=== PATIENT | female | born 1965 | race Caucasian/White ===

== ENCOUNTER 2020-10-06 09:03 | Outpatient (REF) | payer OTHER, SELFPAY ==
[2020-10-06 17:45] LABS: Anion Gap 10 (12-20); Blood Urea Nitrogen 8 mg/dL (9-16); Calcium 9.5 mg/dL (8.4-10.2); Carbon Dioxide 30 mmol/L (22-29); Chloride 105 mmol/L (96-108); Cholesterol 225 mg/dL; Estimated Glomerular Filt Rate > 60; Glucose Fasting 95 mg/dL (60-99); HDL Cholesterol 85 mg/dL; LDL Cholesterol Calculated 129 mg/dl; Potassium 4.9 mmol/L (3.3-5.1); Sodium 140 mmol/L (135-145); Triglycerides 59 mg/dL
[2020-10-06 17:53] LABS: Free T4 (Free Thyroxine) 0.89 ng/dL (0.71-1.85); Thyroid Stimulating Hormone 0.82 uIU/mL (0.32-4.0); Vitamin D 25-OH Total 20.1 ng/mL (>30)
== END 2020-10-06 09:04 | disposition home or self-care (01) ==
LOC: HO.HMGCLDS 09:03
PROVIDERS: PCP Internal Medicine; Visit Provider Internal Medicine
DX: Z00.01 Encounter for general adult medical examination with abnormal findings (principal); D12.6 Benign neoplasm of colon, unspecified; E03.9 Hypothyroidism, unspecified; E04.2 Nontoxic multinodular goiter; Z78.0 Asymptomatic menopausal state; I10 Essential (primary) hypertension
CPT/HCPCS: 36415; 80048; 80061; 82306; 84439; 84443

== ENCOUNTER 2020-10-22 09:24 | Outpatient (REF) | payer OTHER, SELFPAY ==
--- NOTE | ~2020-10-22 | US_ITS ---
EXAMINATION: US THYROID CLINICAL INFORMATION: Nontoxic multinodular goiter. COMPARISON: None TECHNIQUE: Linear transducer grayscale and color Doppler examination with attention to the region of the thyroid. FINDINGS: SIZE: Measurements of the thyroid lobes and nodules are given in sagittal, anteroposterior and transverse dimensions respectively. Right Thyroid Lobe: 10.3 x 3.8 x 5.5 cm, volume 113 mL. Parenchyma: The gland echotexture is heterogeneous. Thyroid vascularity is increased. Left Thyroid Lobe: 9.1 x 3.4 x 4.3 cm, volume 70.4 mL. Parenchyma: The gland echotexture is heterogeneous. Thyroid vascularity is increased. Isthmus: 1.12 cm in maximum AP dimension. Estimated total number of nodules greater than or equal to 1 cm: 6 to 10. School Examiner nodules are described as follows: 1. Location: Right inferior. Size: 4.1 x 3.1 x 3.4 cm, volume of 22.6 mL. Nodule characteristics: Composition: Solid/almost completely solid (2). Echogenicity: Hyperechoic (1). The nodule is complex. Shape: Not taller than wide (0). Margins: Smooth (0). Echogenic Foci: None (0). ACR TI-RADS total points: 3 ACR TI-RADS category: 3 2. Location: Right inferior. Size: 3.8 x 3.4 x 2.4 cm, volume 15.8 mL. Nodule characteristics: Composition: Solid/almost completely solid (2). Echogenicity: Hypoechoic (2). Shape: Not taller than wide (0). Margins: Smooth (0). Echogenic Foci: Macrocalcifications (1). ACR TI-RADS total points: 5 ACR TI-RADS category: 4 3. Location: Right mid. Size: 3.3 x 1.1 x 2.3 cm, volume 4.3 mL. Nodule characteristics: Composition: Solid/almost completely solid (2). Echogenicity: Hyperechoic (1). Shape: Not taller than wide (0). Margins: Smooth (0). Echogenic Foci: None (0). ACR TI-RADS total points: 3 ACR TI-RADS category: 3 4. Location: Left superior. Size: 2.9 x 1.6 x 2.8 cm, volume 6.6 mL. Nodule characteristics: Composition: Solid/almost completely solid (2). Echogenicity: Hyperechoic (1). Shape: Not taller than wide (0). Margins: Smooth (0). Echogenic Foci: Punctate echogenic foci (3). ACR TI-RADS total points: 6. ACR TI-RADS category: 4 5. Location: Left mid/inferior. Size: 4.2 x 2.5 x 4.0 cm, volume 22.3 mL. Nodule characteristics: Composition: Solid/almost completely solid (2). Echogenicity: Hyperechoic (1). Shape: Not taller than wide (0). Margins: Smooth (0). Echogenic Foci: None (0). ACR TI-RADS total points: 3 ACR TI-RADS category: 3 NODES: No lymphadenopathy is seen in the tissue surrounding the thyroid gland. US/US thyroid IMPRESSION: Multinodular thyroid. All nodules meet the criteria for fine-needle aspiration biopsy based on TI-RADS category and size ACR TI-RADS RECOMMENDATION REFERENCE: Ultrasound-guided fine-needle aspiration. * TR3 (3 points): FNA if more than or equal to 2.5 cm in maximum dimension * TR4 (4-6 points): FNA if more than or equal to 1.5 cm in maximum dimension.
== END 2020-10-22 09:25 | disposition home or self-care (01) ==
LOC: HO.HMGCX 09:24
PROVIDERS: Visit Provider Internal Medicine
DX: E04.2 Nontoxic multinodular goiter (principal)
CPT/HCPCS: 76536

== ENCOUNTER 2020-11-03 07:57 | Outpatient (REF) | payer OTHER, SELFPAY ==
[2020-11-06 05:56] LABS: HPV mRNA E6/E7 rflx Not Detected (Not Detected)
== END 2020-11-03 07:58 | disposition home or self-care (01) ==
LOC: HO.LAB 07:57
PROVIDERS: PCP Internal Medicine; Visit Provider Obstetrics & Gynecology
DX: Z01.419 Encounter for gynecological examination (general) (routine) without abnormal findings (principal)
CPT/HCPCS: 87624; 88142

== ENCOUNTER → 2020-11-17 13:35 | Outpatient (BNVA) | payer OTHER, SELFPAY | PROVIDERS: Visit Provider Internal Medicine ==

== ENCOUNTER → 2020-11-23 08:31 | Outpatient (BNVA) | payer OTHER, SELFPAY | PROVIDERS: Visit Provider Nurse Practitioner ==

== ENCOUNTER 2020-12-07 14:30 | Outpatient (REF) | payer OTHER, SELFPAY ==
--- NOTE | ~2020-12-07 | MM_ITS ---
EXAMINATION: MM SCREENING DIGITAL BREAST TOMOSYNTHESIS, BILATERAL CLINICAL INFORMATION: Screening. Asymptomatic. Prior outside mammography from [place] currently unavailable. No known family history breast cancer. The lifetime risk of breast cancer based on the Tyrer-Cuzick Model is 10%. COMPARISON: None. TECHNIQUE: Digital breast tomosynthesis is performed in both the craniocaudal and mediolateral oblique views along with computer-aided detection (CAD). Synthesized 2D images are generated from the tomosynthesis. FINDINGS: There are scattered areas of fibroglandular density (ACR BI-RADS breast composition Category b). There are no significant masses, abnormal calcifications, or other abnormalities. The axilla and skin contours are unremarkable. Radiology department staff will attempt to retrieve prior outside mammography to allow for comparison in an addendum report. MM/MM tomosynthesis screening BI IMPRESSION: No mammographic evidence of malignancy. ASSESSMENT: BI-RADS 1: Negative RECOMMENDATION: Routine annual mammography screening. This patient's information was entered into a reminder system with a target due date for their next mammogram.
== END 2020-12-07 14:31 | disposition home or self-care (01) ==
LOC: HO.MAMMO 14:30
PROVIDERS: Visit Provider Internal Medicine
DX: Z12.31 Encounter for screening mammogram for malignant neoplasm of breast (principal)
CPT/HCPCS: 77063; 77067

== ENCOUNTER 2020-12-31 09:23 | Day surgery (SDC) | payer OTHER, SELFPAY ==
--- NOTE | 2020-12-30 08:38 | HO.ANESPROP2 ---
Documented by User: Danuta Montez 12/30/20 08:38 HPI - Anesthesia Eval Consult details Narrative: 55yo F for Colonoscopy PMFSH Active Problems Active Problems: All Active Problems (Updated 11/17/20 @ 14:31 by Soledad Miller DO) Multinodular non-toxic goiter (Acute) Multinodular thyroid (Acute) Vitamin D deficiency (Acute) Postmenopause (Acute) Tubular adenoma of colon (Acute) Past Medical History Medical History Multinodular thyroid Postmenopause Tubular adenoma of colon Vitamin D deficiency Family History Family History Sister Hypothyroidism Sister Hypothyroidism Sister Hypothyroidism Father History of open heart surgery Mother Colon cancer Hemorrhagic stroke Surgical History Surgical History H/O hemorrhoidectomy History of strabismus surgery Hx of colonoscopy Social History Social History Household Members: Family Alcohol intake: never Patient Tobacco Use Status: Never used Tobacco Use of substances other than those prescribed or required for medical reasons: No Are you DNR?: No Advance Directives: No Advance Directives Information Provided: Yes Gender identity: female Meds Allergies Allergy/AdvReac Type Severity Reaction Status Date / Time No Known Allergies Allergy Verified 12/31/20 10:27 [No Known Allergies*] Home Medications Medication Instructions Recorded Confirmed Last Taken Type calcium carbonate 500 mg calcium 500 mg PO DAILY 10/06/20 12/27/20 Unknown History (1,250 mg) tablet multivitamin 1 tab PO DAILY 10/06/20 12/27/20 Unknown History Exam Exam Date and Time: December 30, 2020 0838 Pertinent Lab Results Pertinent Lab Results: Laboratory Tests 03/16/20 10/06/20 20:54 09:12 WBC 13.5 H Hgb 13.8 Hct 41.7 Plt Count 344 Sodium 140 Potassium 4.9 Chloride 105 Carbon Dioxide 30 H BUN 8 L Creatinine 0.81 Assessment and Plan Assessment Anesthesia Assessment: Chart Reviewed Documented by User: Maryana Allen 12/31/20 12:30 [facility] Past Medical History Medical History Multinodular thyroid Postmenopause Tubular adenoma of colon Vitamin D deficiency Family History Family History Sister Hypothyroidism Sister Hypothyroidism Sister Hypothyroidism Father History of open heart surgery Mother Colon cancer Hemorrhagic stroke Family history of problems with anesthesia: No Surgical History Surgical History H/O hemorrhoidectomy History of strabismus surgery Hx of colonoscopy History of Problems with Anesthesia: No Social History Social History Household Members: Family Alcohol intake: never Patient Tobacco Use Status: Never used Tobacco Use of substances other than those prescribed or required for medical reasons: No Are you DNR?: No Advance Directives: No Advance Directives Information Provided: Yes Gender identity: female Meds Allergies Allergy/AdvReac Type Severity Reaction Status Date / Time No Known Allergies Allergy Verified 12/31/20 10:27 [No Known Allergies*] Home Medications Medication Instructions Recorded Confirmed Last Taken Type calcium carbonate 500 mg calcium 500 mg PO DAILY 10/06/20 12/27/20 Unknown History (1,250 mg) tablet multivitamin 1 tab PO DAILY 10/06/20 12/27/20 Unknown History Exam Height,Weight and Vital Signs: Vital Signs Temp Pulse Resp BP Pulse Ox 97.5 F 91 16 144/85 H 97 12/31/20 10:03 12/31/20 10:03 12/31/20 10:03 12/31/20 10:03 12/31/20 10:03 Airway Mallampati Class: II TM Dist: >3cm Neck ROM: Full Heart: RRR Lungs: CTAB Assessment and Plan Assessment Anesthesia Assessment: Anesthesia Plan Discussed and Chart Reviewed Final Anesthetic Review NPO: Yes ASA Class: II Final Preanesthetic Review: No Changes in Pt Med Stat, Meds/Allgs Chart Reviewed, Consent Obtained/Reviewed and Anes Risks/Benef Reviewed Patient Risk: Low Procedure Risk: Low Assessment/Block/Sedation in SS: Assess/Block/Sedation-SS Anesthetic Plan Anesthetic Plan: MAC: Disposition: Standard PACU
[2020-12-31 09:49] VITALS: BMI 25.0
[2020-12-31 10:03] VITALS: BP 144/85; PULSE 91; RESP 16; TEMP 36.4; O2SAT 97
[2020-12-31] MEDS: Lactated Ringers 1,000 ML 100 ML IVCONT (10:26)
--- NOTE | 2020-12-31 10:48 | P.OP_ITS ---
Operative Note Operative Note Date of Service: 12/31/20 Narrative: Pre-op diagnosis: colon cancer screening, family history of colon cancer, history of colon polyps Post-op diagnosis: other (colon polyps, diverticulosis, hemorrhoids) Procedure: COLONOSCOPY TILL CECUM WITH BIOPSIES AND SUBMUCOSAL INJECTION Consent: Indications for the procedure and potential complications of bleeding, perforation, reaction to medications and missed diagnosis were discussed with the patient and informed consent was obtained. Instrument: Olympus PCF H 190 L variable stiffness pediatric colonoscope Monitoring: Vital signs and clinical assessment, intermittent blood pressure monitoring, continuous EKG monitoring, Pulse oximetry and Carbon Dioxide monitoring were done throughout the procedure. Colon withdrawl time was 26 minutes. Procedure: The patient was placed in the left lateral decubitis position and pre-procedure medications were administered. After a digital rectal examination of the ano-rectum, the video colonoscope was inserted into the rectum and advanced through the colon to the cecum. The colonoscope was slowly withdrawn in a retrograde panoramic fashion and the colon mucosa was carefully examined including a retroflexed view of the rectum. Findings and interventions are described below. Procedure Difficulty: Without difficulty Findings: Terminal Ileum: Not evaluated Cecum: Normal Ascending Colon: Normal Transverse Colon: A 7-8 mm flat polyp in proximal TC at the hepatic flexure - raised with 3 cc of Orise solution. Unable to snare the polyp. Polyp removed piecemeal with a cold bx. Descending Colon: Normal Sigmoid Colon: Mild diverticulosis Rectum: Normal Ano-rectum: Large internal hemorrhoids Colon preparation: Excellent Impression and Post Procedure Diagnosis: Colonoscopy Findings: One small polyp removed Mild diverticulosis seen in the sigmoid colon Large hemorrhoids on retroflexed exam. Plan: Await pathology results Patient has an appointment on 01/07/21 in the GI Clinic with Roxy Melara NP. Repeat Colonoscopy interval based on path results - in 5 years if polyps are adenomatous and due to a hx of adenomatous colon polyps. Above findings were reviewed with the patient and colon polyps and hemorrhoids handouts were given in the discharge area Surgeon: Vijay Love MD Anesthesia: MAC (Eunice Lynn CRNA) Was an Medical Physics Researcher used for this Procedure?: Yes Medical Physics Researcher: Jose Lozano Estimated blood loss (mL): 0 Pathology: other (A- POLYP TRANSVERSE COLON- O RISE USED) Condition: stable Disposition: PACU
--- NOTE | 2020-12-31 10:48 | MHC.SHP ---
Pre-Procedural Eval Section A Date of Service: 12/31/20 The patient is an INPATIENT: No The History & Physical has been completed within 30 days and I have reviewed it.: No Section B Chief Complaint: benign neoplasm of colon Details of Present Illness: colon cancer screening, hx of colon polyps, FH of colon cancer Relevant Family History (Specify if Yes): Yes Relevant Social History: None Present Medications: see Short Stay Collaborative assessment Medical History: Significant History (Multinodular thyroid Postmenopause Tubular adenoma of colon Vitamin D deficiency) History of Previous Operations: Relevant previous surgery/procedure and date(s) (H/O hemorrhoidectomy History of strabismus surgery Hx of colonoscopy) Allergies: Allergies Allergy/AdvReac Type Severity Reaction Status Date / Time No Known Allergies Allergy Verified 12/31/20 10:27 [No Known Allergies*] Review of Systems Sugical H&P ROS: Negative: Constitution, Cardiovascular, Respiratory and Gastrointestinal Exam Surgical H&P Exam: Normal: Heart, Normal: Lungs, Normal: Extremities and Normal: Abdomen Plan Diagnosis/Plan: Unchanged I have reviewed the history and physical and performed a pertinent physical examination on my patient. No changes have occurred unless specified.
[2020-12-31 11:48] VITALS: BP 112/66; PULSE 86; RESP 16; TEMP 36.6; O2SAT 100
[2020-12-31 12:03] VITALS: BP 122/59; PULSE 89; RESP 18; O2SAT 97
== END 2020-12-31 12:50 | disposition home or self-care (01) ==
PROVIDERS: PCP Internal Medicine; Visit Provider Internal Medicine Gastroenterology
PROC: 0DJD8ZZ Inspection of Lower Intestinal Tract, Via Natural or Artificial Opening Endoscopic (ICD-10-PCS; CPT 45378; principal; 2020-12-31 10:20)
DX: Z12.11 Encounter for screening for malignant neoplasm of colon (principal); Z80.0 Family history of malignant neoplasm of digestive organs; Z86.010 Personal history of colon polyps; K63.5 Polyp of colon; K57.30 Diverticulosis of large intestine without perforation or abscess without bleeding; K64.8 Other hemorrhoids; E04.2 Nontoxic multinodular goiter; E55.9 Vitamin D deficiency, unspecified; Z79.899 Other long term (current) drug therapy
CPT/HCPCS: 45380; 45381; 88305

== ENCOUNTER 2021-01-06 09:31 | Outpatient (REF) | payer OTHER, SELFPAY ==
--- NOTE | 2021-01-06 10:22 | PM.OP ---
Brief Operative Note Date of Service: 01/06/21 Surgeon: Soledad Miller, DO This is doctor Soledad Miller. This is an ultrasound-guided fine-needle aspiration report. Date of Examination: 01/06/2021 Indication: Multinodular Thyroid Porcedure: Procedure was explained to the patient. Alternatives, the risk and benefits were discussed. Written consent was obtained. A time-out was also obtained. After sterile preparation, fine-needle aspiration of a right lower pole 4.1 cm thyroid nodule was performed using direct ultrasound guidance to confirm accurate needle placement. Four aspirations were made using 27 gauge needles. Samples were submitted for cytology. One pass was dedicated for [employer] sequencing business applications specialist testing. Our attention was then turned to the left lobe of the thyroid. Fine-needle aspiration of a left mid pole 4.2 cm thyroid nodule was performed using direct ultrasound guidance to confirm accurate needle placement. Four aspirations were made using 27 gauge needles. Samples were submitted for cytology. One pass was dedicated for [employer] sequencing business applications specialist testing. The patient tolerated the procedure well. Aftercare instructions were provided. Impression: Uncomplicated fine needle aspiration biopsy of a right lower pole 4.1 cm thyroid nodule and a left mid pole 4.2 cm thyroid nodule under ultrasound guidance. Was an Development Analyst used for this Procedure?: No Estimated blood loss (mL): 0
== END 2021-01-06 09:32 | disposition home or self-care (01) ==
LOC: HO.US 09:31
PROVIDERS: Visit Provider Internal Medicine
DX: E04.2 Nontoxic multinodular goiter (principal)
CPT/HCPCS: 10005; 10006; 88172; 88173; 88177

== ENCOUNTER → 2021-02-28 13:16 | Outpatient (BNVA) | payer OTHER, SELFPAY | PROVIDERS: PCP Internal Medicine; Visit Provider Internal Medicine ==

== ENCOUNTER 2021-03-01 06:04 | Outpatient (REF) | payer OTHER, SELFPAY ==
[2021-03-01 12:20] LABS: Free T4 (Free Thyroxine) 0.88 ng/dL (0.71-1.85); Thyroid Stimulating Hormone 1.71 uIU/mL (0.32-4.0); Vitamin D 25-OH Total 32.4 ng/mL (>30)
[2021-03-01 12:43] LABS: Alanine Aminotransferase 15 U/L (0-31); Albumin Level 4.5 g/dL (3.5-5.0); Alkaline Phosphatase 70 U/L (39-117); Anion Gap 13 (12-20); Aspartate Amino Transferase 18 U/L (5-31); Bilirubin Total 0.7 mg/dL (0.0-1.0); Blood Urea Nitrogen 7 mg/dL (9-16); Carbon Dioxide 27 mmol/L (22-29); Chloride 105 mmol/L (96-108); Estimated Glomerular Filt Rate > 60; Glucose Random 78 mg/dL (60-115); Phosphorus 4.1 mg/dL (2.7-4.5); Sodium 140 mmol/L (135-145); Total Protein 6.9 g/dL (6.5-8.0)
[2021-03-03 13:31] LABS: Calcium (PTHI) 9.8 mg/dL (8.6-10.4); PTHI 33 pg/mL (14-64)
== END 2021-03-01 06:05 | disposition home or self-care (01) ==
LOC: HO.HMGCLDS 06:04
PROVIDERS: PCP Internal Medicine; Visit Provider Internal Medicine
DX: E55.9 Vitamin D deficiency, unspecified (principal); E04.2 Nontoxic multinodular goiter
CPT/HCPCS: 36415; 80053; 82306; 83970; 84100; 84439; 84443

== ENCOUNTER → 2021-03-22 15:00 | Outpatient (BNVA) | payer OTHER, SELFPAY | PROVIDERS: PCP Internal Medicine; Visit Provider Nurse Practitioner ==

== ENCOUNTER 2021-06-13 06:08 | Outpatient (REF) | payer OTHER, SELFPAY | END 2021-06-13 06:09 | disposition home or self-care (01) | LOC: HO.HMGCLDS 06:08 | PROVIDERS: PCP Internal Medicine; Visit Provider Internal Medicine | DX: Z20.822 Contact with and (suspected) exposure to COVID-19 (principal) | CPT/HCPCS: C9803; U0003; U0005 ==

== ENCOUNTER 2021-06-20 06:49 | Outpatient (REF) | payer OTHER, SELFPAY | END 2021-06-20 06:50 | disposition home or self-care (01) | LOC: HO.HMGCLDS 06:49 | PROVIDERS: PCP Internal Medicine; Visit Provider Internal Medicine | DX: Z20.822 Contact with and (suspected) exposure to COVID-19 (principal) | CPT/HCPCS: C9803; U0003; U0005 ==

== ENCOUNTER 2021-07-08 06:19 | Outpatient (REF) | payer OTHER, SELFPAY ==
[2021-07-08 11:55] LABS: Alanine Aminotransferase 16 U/L (0-31); Albumin Level 4.3 g/dL (3.5-5.0); Alkaline Phosphatase 90 U/L (39-117); Anion Gap 11 (12-20); Aspartate Amino Transferase 17 U/L (5-31); Bilirubin Total 0.3 mg/dL (0.0-1.0); Blood Urea Nitrogen 9 mg/dL (9-16); Calcium 10.1 mg/dL (8.4-10.2); Carbon Dioxide 30 mmol/L (22-29); Chloride 105 mmol/L (96-108); Estimated Glomerular Filt Rate > 60; Glucose Random 77 mg/dL (60-115); Phosphorus 3.4 mg/dL (2.7-4.5); Potassium 5.2 mmol/L (3.3-5.1); Sodium 141 mmol/L (135-145); Total Protein 6.9 g/dL (6.5-8.0)
[2021-07-08 12:09] LABS: Free T4 (Free Thyroxine) 1.26 ng/dL (0.71-1.85); Thyroid Stimulating Hormone 1.73 uIU/mL (0.32-4.0); Vitamin D 25-OH Total 29.9 ng/mL (>30)
[2021-07-11 13:41] LABS: Calcium (PTHI) 10.1 mg/dL (8.6-10.4); PTHI 42 pg/mL (14-64)
== END 2021-07-08 06:20 | disposition home or self-care (01) ==
LOC: HO.HMGCLDS 06:19
PROVIDERS: PCP Internal Medicine; Visit Provider Internal Medicine
DX: E04.2 Nontoxic multinodular goiter (principal); E55.9 Vitamin D deficiency, unspecified
CPT/HCPCS: 36415; 80053; 82306; 83970; 84100; 84439; 84443

== ENCOUNTER 2021-07-12 06:02 | Outpatient (REF) | payer OTHER, SELFPAY ==
[2021-07-12 12:05] LABS: Anion Gap 15 (12-20); Blood Urea Nitrogen 12 mg/dL (9-16); Calcium 10.1 mg/dL (8.4-10.2); Carbon Dioxide 26 mmol/L (22-29); Chloride 105 mmol/L (96-108); Estimated Glomerular Filt Rate > 60; Glucose Random 78 mg/dL (60-115); Potassium 4.6 mmol/L (3.3-5.1); Sodium 141 mmol/L (135-145)
== END 2021-07-12 06:03 | disposition home or self-care (01) ==
LOC: HO.HMGCLDS 06:02
PROVIDERS: PCP Internal Medicine; Visit Provider Internal Medicine
DX: E04.2 Nontoxic multinodular goiter (principal)
CPT/HCPCS: 36415; 80048

== ENCOUNTER → 2021-07-14 13:13 | Outpatient (BNVA) | payer OTHER, SELFPAY | PROVIDERS: PCP Internal Medicine; Visit Provider Internal Medicine ==

== ENCOUNTER 2021-12-23 07:57 | Outpatient (REF) | payer OTHER, SELFPAY ==
[2021-12-23 11:38] LABS: Cholesterol 228 mg/dL; HDL Cholesterol 84 mg/dL; LDL Cholesterol Calculated 134 mg/dl; Triglycerides 52 mg/dL
[2021-12-23 12:01] LABS: Free T4 (Free Thyroxine) 1.49 ng/dL (0.71-1.85); Thyroid Stimulating Hormone 0.34 uIU/mL (0.32-4.0); Vitamin D 25-OH Total 26.6 ng/mL (>30)
[2021-12-24 21:12] LABS: Lyme Abs Screen <0.90 index
== END 2021-12-23 07:58 | disposition home or self-care (01) ==
LOC: HO.HMGCLDS 07:57
PROVIDERS: PCP Internal Medicine; Visit Provider Internal Medicine
DX: Z00.01 Encounter for general adult medical examination with abnormal findings (principal); T14.8XXA Other injury of unspecified body region, initial encounter; W57.XXXA Bitten or stung by nonvenomous insect and other nonvenomous arthropods, initial encounter; E89.0 Postprocedural hypothyroidism; E55.9 Vitamin D deficiency, unspecified; Z78.0 Asymptomatic menopausal state
CPT/HCPCS: 36415; 80061; 82306; 84439; 84443; 86617; 86618

== ENCOUNTER 2022-07-21 16:54 | Outpatient (REF) | payer BC, OTHER, SELFPAY ==
--- NOTE | ~2022-07-21 | XR_ITS ---
EXAMINATION: XR WRIST, RIGHT CLINICAL INFORMATION: Contusion of right wrist, initial encounter. COMPARISON: None. TECHNIQUE: PA, lateral, and oblique views of the right wrist. FINDINGS: No acute fractures or malalignment. Mild diffuse nonspecific soft tissue swelling. No unexpected radiopaque foreign bodies. XR/XR wrist RT min 3V IMPRESSION: No acute fractures or malalignment. It is important to note that early nondisplaced fractures, including scaphoid fractures may be radiographically occult, therefore if symptoms persist and if there is clinical concern for an occult fracture a short-term follow-up radiograph is recommended.
== END 2022-07-21 16:55 | disposition home or self-care (01) ==
LOC: HO.HMGCX 16:54
PROVIDERS: PCP Internal Medicine; Visit Provider Internal Medicine
DX: S60.211A Contusion of right wrist, initial encounter (principal); X58.XXXA Exposure to other specified factors, initial encounter; Y93.9 Activity, unspecified; Y92.9 Unspecified place or not applicable; Y99.8 Other external cause status
CPT/HCPCS: 73110

== ENCOUNTER 2023-03-14 14:20 | Outpatient (AMB) | payer BC, SELFPAY ==
[2023-03-14 14:27] VITALS: BP 122/80; PULSE 98; O2SAT 98
--- NOTE | 2023-03-14 14:27 | MHC.OFFWIV ---
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 Patient Tobacco Use Status: Never used Tobacco Allergies No Known Allergies [No Known Allergies*] Allergy (Verified 03/17/23 06:57) Medication List - Last Reconciled 03/17/23 by David Sosa MD cephalexin 500 mg PO BID cholecalciferol (vitamin D3) 2,000 units PO DAILY PRN levothyroxine 112 mcg PO DAILY multivitamin 1 tab PO DAILY Do you need a note to return to daycare/school/sports/work: Yes HPI EST/dog bite right hand HPI Details 58-year-old female presents to the office for a sick visit. Date of injury: 03/14/2023. Patient works at a veterinary office. One of the dogs snapped at her and in the process bit her right hand 3rd digit. She would like an evaluation. REPLACED BY [facility] Medical History (Updated 03/17/23 @ 07:00 by David Sosa MD) Postoperative hypothyroidism Vitamin D deficiency Postmenopause Multinodular non-toxic goiter Tubular adenoma of colon Surgical History Hx of total thyroidectomy History of strabismus surgery H/O hemorrhoidectomy Hx of colonoscopy Family History Sister Hypothyroidism Sister Hypothyroidism Sister Hypothyroidism Father History of open heart surgery Mental health disorder Mother Colon cancer Hemorrhagic stroke Social History Household Members: Family Housing: House Alcohol intake: never Patient Tobacco Use Status: Never used Tobacco e-Cigarette/Vaping Use: Never Used service: No Current occupational status: employed Gender identity: Female Cognitive needs: No Hearing needs: No Vision needs: No Female Reproductive History Menstrual Age of Menarche: 11 Physical Exam Vital Signs: Last Vital Signs Pulse 98 03/14/23 14:27 BP 122/80 03/14/23 14:27 Pulse Ox 98 03/14/23 14:27 Oxygen Delivery Method Room Air 03/14/23 14:27 Extrem Other: Right hand: Abrasions over the finger indicating bite pena. The wound has stopped bleeding. Full range of motion at the digits. Assessment & Plan Assessment & Plan (1) Injury caused by dog bite: Code(s): W54.0XXA - Bitten by dog, initial encounter Qualifiers: Encounter type: initial encounter Qualified Code(s): W54.0XXA - Bitten by dog, initial encounter Plan: Patient was reassured. She is up-to-date on the tetanus injection. Antibiotics were called in. Note for work given. Medications: New cephalexin 500 mg PO BID 14 caps 0RF Coding Level of Care Code Est Pt Level 4 (39376) Diagnoses Dog bite, initial encounter W54.0XXA Encounter type: initial encounter
== END 2023-03-14 16:01 | disposition home or self-care (01) ==
PROVIDERS: PCP Internal Medicine; Visit Provider Internal Medicine
DX: S60.511A Abrasion of right hand, initial encounter (principal); W54.0XXA Bitten by dog, initial encounter; Z04.2 Encounter for examination and observation following work accident
CPT/HCPCS: 99214

== ENCOUNTER 2023-04-25 08:37 | Outpatient (AMB) | payer BC, SELFPAY ==
--- NOTE | 2023-04-25 08:57 | MHC.OFFWIV ---
Intake Vital Signs 04/25/23 09:01 Height 5 ft 5 in Weight 169 lb 6 oz BMI 28.2 BP 148/82 H Blood Pressure Location Rt brachial Position Sitting Pulse 94 Pulse Source Pulse Oximeter Temp 98.1 F Temp Source Oral Pulse Oximetry (%) 99 Oxygen Delivery Method Room Air Intake Visit Reasons: EP, tic bite left inner thigh [phone] Patient Tobacco Use Status: Never used Tobacco Allergies No Known Allergies [No Known Allergies*] Allergy (Verified 04/25/23 08:57) Medication List - Last Reconciled 04/25/23 by Frederick Garcia MD cephalexin 500 mg PO BID cholecalciferol (vitamin D3) 2,000 units PO DAILY PRN levothyroxine 112 mcg PO DAILY multivitamin 1 tab PO DAILY Do you need a note to return to daycare/school/sports/work: No HPI EP, tic bite left inner thigh [phone] HPI Details Patient is a 58-year-old female came in today to be evaluated for rash that developed after that ache bite left thigh Patient says that 2 days ago she noticed a tick on her thigh, she carefully removed the take And then she noticed a rash developing so she came in. On examination she has a erythematous rash with the take was bitten Size of about 3 in diameter. I am treating her with doxycycline b.i.d. for 14 days. REPLACED BY [facility] Medical History Postoperative hypothyroidism Vitamin D deficiency Postmenopause Multinodular non-toxic goiter Tubular adenoma of colon Surgical History Hx of total thyroidectomy History of strabismus surgery H/O hemorrhoidectomy Hx of colonoscopy Family History Sister Hypothyroidism Sister Hypothyroidism Sister Hypothyroidism Father History of open heart surgery Mental health disorder Mother Colon cancer Hemorrhagic stroke Social History Household Members: Family Housing: House Alcohol intake: never Patient Tobacco Use Status: Never used Tobacco e-Cigarette/Vaping Use: Never Used service: No Current occupational status: employed Gender identity: Female Cognitive needs: No Hearing needs: No Vision needs: No Female Reproductive History Menstrual Age of Menarche: 11 Review of Systems Const All systems reviewed & are unremarkable except as noted in HPI and below Physical Exam Vital Signs: Last Vital Signs Temp 98.1 F 04/25/23 09:01 Pulse 94 04/25/23 09:01 BP 148/82 H 04/25/23 09:01 Pulse Ox 99 04/25/23 09:01 Oxygen Delivery Method Room Air 04/25/23 09:01 BMI result Body Mass Index 28.2 Const General: no acute distress Orientation/consciousness: patient oriented x3 Eyes General: appearance normal, both eyes and all related structures Resp Effort & Inspection: normal respiratory effort and able to speak in complete sentences Auscultation: clear to auscultation bilaterally Cardio Other: S1 S2 Skin Full body images: 1. 3 in x 3 in round diameter erythmatous rash with central black dot Neuro General: patient oriented x3 Psych Mental Status: mental status grossly normal Assessment & Plan Assessment & Plan (1) Tick bite of left thigh with infection: Code(s): S70.362A - Insect bite (nonvenomous), left thigh, initial encounter; L08.9 - Local infection of the skin and subcutaneous tissue, unspecified; W57.XXXA - Bitten or stung by nonvenomous insect and other nonvenomous arthropods, initial encounter Plan Patient is a 58-year-old female came in today to be evaluated for rash that developed after that ache bite left thigh Patient says that 2 days ago she noticed a tick on her thigh, she carefully removed the take And then she noticed a rash developing so she came in. On examination she has a erythematous rash with the take was bitten Size of about 3 in diameter. I am treating her with doxycycline b.i.d. for 14 days. Medications: New doxycycline hyclate 100 mg PO BID 28 tabs 0RF 14 days Discontinued cephalexin Discontinued Reason: Doctor's Order 500 mg PO BID 14 caps 0RF Coding Level of Care Code Est Pt Level 3 (51652) Diagnoses Tick bite of left thigh with infection S70.362A; L08.9; W57.XXXA
[2023-04-25 09:01] VITALS: BP 148/82; PULSE 94; TEMP 36.7; O2SAT 99; BMI 28.2
== END 2023-04-25 09:23 | disposition home or self-care (01) ==
PROVIDERS: PCP Internal Medicine; Visit Provider Internal Medicine
DX: S70.362A Insect bite (nonvenomous), left thigh, initial encounter (principal); L08.9 Local infection of the skin and subcutaneous tissue, unspecified; W57.XXXA Bitten or stung by nonvenomous insect and other nonvenomous arthropods, initial encounter
CPT/HCPCS: 99213

== ENCOUNTER 2023-06-22 11:47 | Outpatient (AMB) | payer BC, SELFPAY ==
--- NOTE | 2023-06-22 12:00 | MHC.PC.OV ---
Vital Signs 06/22/23 12:01 Height 5 ft 5 in Weight 171 lb BMI 28.5 BP 122/78 Blood Pressure Location Rt brachial Position Sitting Pulse 90 Pulse Source Pulse Oximeter Pulse Oximetry (%) 98 Oxygen Delivery Method Room Air Intake Visit Reasons: Annual PE Allergies No Known Allergies [No Known Allergies*] Allergy (Verified 06/26/23 03:41) Medication List - Last Reconciled 06/26/23 by Mag Rhodes MD levothyroxine 112 mcg PO DAILY multivitamin 1 tab PO DAILY Tobacco use date assessed: 12/19/21 HPI Annual PE HPI Details 58-year-old lady here today for physical exam. She has history of multinodular thyroid, status post total thyroidectomy, currently stable controlled5 on levothyroxine. She is up-to-date with her cervical cancer screening and pelvic exam, had done 2020 with negative findings, due again in 2025. Up-to-date with her screening colonoscopy done [place] [address] Love, with negative findings, due again in 5 years due to prior history of tubular adenoma of colon and mother diagnosed with colorectal cancer.. She however is overdue for screening mammogram. Has been feeling well with no complaints at present time. She has had COVID vaccines but has not yet had her booster and does not plan to get it, declines getting flu vaccine PFSH Medical History (Updated 06/22/23 @ 13:03 by Mag Rhodes MD) Contusion of wrist, right Postoperative hypothyroidism Vitamin D deficiency Postmenopause Multinodular non-toxic goiter Tubular adenoma of colon Surgical History Hx of total thyroidectomy History of strabismus surgery H/O hemorrhoidectomy Hx of colonoscopy Family History Sister Hypothyroidism Sister Hypothyroidism Sister Hypothyroidism Father History of open heart surgery Mental health disorder Mother Colon cancer Hemorrhagic stroke Social History Household Members: Family Housing: House Alcohol intake: never Patient Tobacco Use Status: Never used Tobacco e-Cigarette/Vaping Use: Never Used service: No Current occupational status: employed Gender identity: Female Cognitive needs: No Hearing needs: No Vision needs: No Female Reproductive History Menstrual Age of Menarche: 11 Questionnaire PHQ-9 Over the last 2 weeks, how often have you been bothered by any of the following problems? 1. Little interest or pleasure in doing things: not at all 2. Feeling down, depressed, or hopeless: not at all 3. Trouble falling or staying asleep, or sleeping too much: not at all 4. Feeling tired or having little energy: not at all 5. Poor appetite or overeating: not at all 6. Feeling bad about yourself - or that you are a failure or have let yourself or your family down: not at all 7. Trouble concentrating on things, such as reading the newspaper or watching television: not at all 8. Moving or speaking so slowly that other people could have noticed. Or the opposite - being so fidgety or restless that you have been moving around a lot more than usual: not at all 9. Thoughts that you would be better off or of hurting yourself in some way: not at all Total score: 0 Depression Screening Interpretation: Negative Depression Screening Done: Yes [id number] - PHQ-9 Billing: Yes Source: Developed by Drs. Carl Yañez, Nae Vaz, Oliver Obrien and colleagues, with an educational john from [employer]. Thrive Questionnaire Date Thrive assessed: 06/22/23 I am a: Patient What is your living situation today?: I have a steady place to live Within the past 12 months, did the food you bought not last and you didn't have the money to get more?: Never true Within the past 12 months, did you worry whether your food would run out before you got money to buy more?: Never true Do you have trouble paying for medicines?: No Do you have trouble getting transportation to medical appointments?: No Do you have trouble paying your heating and electricity bill?: No Do you have trouble taking care of your child, family member or friend?: No Do you have trouble with day-to-day activities such as bathing, preparing meals, shopping, managing finances, etc.?: No Are you currently unemployed and looking for a job?: No Are you interested in more education?: No AUDIT C Alcohol Use Questionnaire (AUDIT-C) 1. How often do you have a drink containing alcohol?: Never 3. How often do you have six or more drinks on one occasion?: Never Total Score: 0 SURENDRA-7 AMB Questionnaire SURENDRA-7 Date SURENDRA - 7 assessed: 12/19/21 Feeling nervous, anxious, or on edge: 0 = Not at all Not being able to stop or control worryin = Not at all Worrying too much about different things: 0 = Not at all Trouble relaxin = Not at all Being so restless that it is hard to sit still: 0 = Not at all Becoming easily annoyed or irritable: 0 = Not at all Feeling afraid as if something awful might happen: 0 = Not at all Total SURENDRA-7 score (0-4 normal; 5-9 mild; 10-14 moderate; 15-21 severe): 0 Source: Developed by Drs. Carl Yañez, Nae Vaz, Oliver Obrien and colleagues, with an educational john from [employer]. Review of Systems Const Denies body aches, Denies difficulty sleeping, Denies excessive sweating, Denies fatigue, Denies headache(s), Denies weakness, Denies weight gain and Denies weight loss Eyes Details: Goes to [facility], wears driving and reading glasses Reports blurry vision and Denies diplopia ENT Denies change in voice, Denies dysphagia, Denies headache(s), Denies hoarseness and Denies nasal congestion Card Denies chest pain, Denies irregular heart rhythm, Denies dyspnea and Reports other Resp Denies cough and Denies dyspnea GI Denies abdominal pain, Denies change in bowel habits, Denies dysphagia, Denies diarrhea and Denies nausea Reports no additional complaints Musc Denies myalgias, Denies muscle cramps, Denies numbness and Denies tingling Skin/Breast Denies hirsutism and Denies alopecia Neuro Denies headache(s), Denies numbness, Denies tingling and Denies weakness Psych Reports no additional complaints Endo Denies cold intolerance, Denies excessive sweating, Denies fatigue and Denies heat intolerance Stanton/Lymph Denies easy bleeding and Denies easy bruising Aller/Immun Reports no additional complaints Physical exam (Primary Care) Vital Signs: Last Vital Signs Pulse 90 06/22/23 12:01 BP 122/78 06/22/23 12:01 Pulse Ox 98 06/22/23 12:01 Oxygen Delivery Method Room Air 06/22/23 12:01 BMI result Body Mass Index 28.5 Tobacco/Smoking Status: Tobacco use Status Tobacco use date assessed 12/19/21 06/22/23 12:02 Patient Tobacco Use Status Never used Tobacco 06/22/23 12:02 e-Cigarette/Vaping Use Never Used 06/22/23 12:02 Depression Screening Interpretation: Negative Thrive Assessment: Date of Thrive Assessment Date Thrive assessed 12/19/21 06/22/23 12:02 Const General: no acute distress and alert Orientation/consciousness: patient oriented x3 HENMT Head: Yes normocephalic and Yes atraumatic Ears: external ears normal, TM's normal bilaterally and EAC's normal General nose exam: Normal external nose present and No nasal discharge present Face and sinus: Yes face symmetric Mouth: Normal oral and palatal mucosa present, lip normal, tongue normal, oropharynx normal and moist mucous membranes Throat: Yes posterior oropharynx normal Eyes General: appearance normal, both eyes and all related structures Eyelids: Yes eyelids normal Conjunctivae: conjunctivae normal Sclerae: sclerae normal Pupils: Equal, round and reactive pupils present EOM: EOMs intact bilaterally Neck Neck: Yes full ROM, Yes no lymphadenopathy and Yes supple Chest Chest palpation & inspection: normal inspection of the chest Breast/axilla inspection: normal inspection of the breasts Breast/axilla palpation: normal palpation of the breasts Resp Effort & Inspection: normal respiratory effort and able to speak in complete sentences Auscultation: clear to auscultation bilaterally Cardio Rate: regular rate Rhythm: regular rhythm Heart sounds: S1 normal heart sound present and S2 normal heart sound present GI Palpation (GI): Soft to palpation, nontender, no guarding and no masses Auscultation: normal bowel sounds General: Yes no CVA tenderness and Yes deferred Back/Spine/Pelvis Back: no CVA tenderness and No back tenderness Skin General skin exam: no rashes or lesions noted Neuro General: patient oriented x3, gait normal, moves all extremities, Normal light touch and pain sensation, no focal motor deficits and CN's II-XI intact bilaterally Cranial nerves: Yes Equal, round and reactive pupils present Cognition (Neuro): normal cognition Gait exam (Neuro): Normal gait present Motor exam (neuro): 5/5 motor strength present throughout Extrem General: Yes normal to inspection, Yes full ROM, Yes no joint enlargement, Yes no pedal edema and Yes normal gait Psych Appearance: grossly normal and well kempt Mental Status: mental status grossly normal Speech and movement: Normal speech and movement present Affect: normal affect Attitude: cooperative Thought process: Normal thought process present Thought content: Normal thought content present Assessment and Plan Assessment & Plan (1) Annual visit for general adult medical examination with abnormal findings: Code(s): Z00.01 - Encounter for general adult medical examination with abnormal findings Plan: Will check appropriate labs. Recommended dental visit every 6 months and regular eye exams, at least every 2 years. Take adequate calcium in diet and vitamin-D 3 at 2000 IU per cap once a day, in addition to weight-bearing exercises to help maintain good muscle tone and weight control. Instructed to do self-breast exam, and recommended to get yearly mammogram, ordered. Referred to [facility] for her routine Pap and pelvic exam. Has had her tao COVID vaccinations, but does not want to get the booster or the flu shot. Colonoscopy due again in 2025 (2) Vitamin D deficiency: Code(s): E55.9 - Vitamin D deficiency, unspecified Plan: Will check vitamin-D level (3) Tubular adenoma of colon: Comment: 2020-scope repeat 5 years she Code(s): D12.6 - Benign neoplasm of colon, unspecified Plan: Recent colonoscopy in 2020 showed no evidence of tubular adenoma, but we will need to repeat colonoscopy in 2025 (4) Postoperative hypothyroidism: Code(s): E89.0 - Postprocedural hypothyroidism Plan: Continue with current dose of levothyroxine Orders: Orders Lipid Panel 06/23/23 D12.6 - Benign neoplasm of colon, unspecified, E55.9 - Vitamin D deficiency, unspecified, E89.0 - Postprocedural hypothyroidism, Z00.01 - Encounter for general adult medical examination with abnormal findings, Z78.0 - Asymptomatic menopausal state Thyroid Stimulating Hormone 06/23/23 D12.6 - Benign neoplasm of colon, unspecified, E55.9 - Vitamin D deficiency, unspecified, E89.0 - Postprocedural hypothyroidism, Z00.01 - Encounter for general adult medical examination with abnormal findings, Z78.0 - Asymptomatic menopausal state Free T4 (Free Thyroxine) 3 Months D12.6 - Benign neoplasm of colon, unspecified, E03.9 - Hypothyroidism, unspecified, E55.9 - Vitamin D deficiency, unspecified, E89.0 - Postprocedural hypothyroidism, Z00.01 - Encounter for general adult medical examination with abnormal findings, Z78.0 - Asymptomatic menopausal state Comprehensive [place]. Panel Fast 06/23/23 D12.6 - Benign neoplasm of colon, unspecified, E55.9 - Vitamin D deficiency, unspecified, E89.0 - Postprocedural hypothyroidism, Z00.01 - Encounter for general adult medical examination with abnormal findings, Z78.0 - Asymptomatic menopausal state Vitamin D 25-OH Total 06/23/23 D12.6 - Benign neoplasm of colon, unspecified, E55.9 - Vitamin D deficiency, unspecified, E89.0 - Postprocedural hypothyroidism, Z00.01 - Encounter for general adult medical examination with abnormal findings, Z78.0 - Asymptomatic menopausal state Complete Blood Count Auto Diff 06/23/23 D12.6 - Benign neoplasm of colon, unspecified, E55.9 - Vitamin D deficiency, unspecified, E89.0 - Postprocedural hypothyroidism, Z00.01 - Encounter for general adult medical examination with abnormal findings, Z78.0 - Asymptomatic menopausal state MM tomosynthesis screening BI 06/22/23 Z12.31 - Encounter for screening mammogram for malignant neoplasm of breast Referrals [employer]OY[employer] Referral Z12.4 - Encounter for screening for malignant neoplasm of cervix Coding Level of Care Code Est Pt Prev Care 40-64y(17652) Diagnoses Annual visit for general adult medical examination with abnormal findings Z00.01 Vitamin D deficiency E55.9 Tubular adenoma of colon D12.6 Postoperative hypothyroidism E89.0
[2023-06-22 12:01] VITALS: BP 122/78; PULSE 90; O2SAT 98; BMI 28.5
== END 2023-06-22 13:41 | disposition home or self-care (01) ==
PROVIDERS: Visit Provider Internal Medicine
DX: Z00.00 Encounter for general adult medical examination without abnormal findings (principal); E55.9 Vitamin D deficiency, unspecified; D12.6 Benign neoplasm of colon, unspecified; E89.0 Postprocedural hypothyroidism
CPT/HCPCS: 99396

== ENCOUNTER 2023-06-23 08:40 | Outpatient (REF) | payer BC, OTHER, SELFPAY ==
[2023-06-23 11:14] LABS: MANUAL DIFF FLAG NO
[2023-06-23 11:18] LABS: Basophils Absolute Auto 0.1 X10*3/uL (0.0-0.2); Basophils Percent Auto 1.3 % (0-2); Eosinophils Absolute Auto 0.2 X10*3/uL (0.0-0.4); Eosinophils Percent Auto 3.3 % (0-4); Hematocrit 43.7 % (37.0-47.0); Hemoglobin 14.1 g/dl (12.0-16.0); Imm Gran Abs Auto 0.01 X10*3/uL (0.00-0.03); Imm Gran Pct Auto 0.2 % (0.0-0.4); Lymphocytes Absolute Auto 1.8 X10*3/uL (1.2-4.9); Lymphocytes Percent Auto 34.5 % (20-40); Mean Corpuscular HGB Conc 32.3 g/dl (31.0-35.0); Mean Corpuscular Hemoglobin 27.6 pg (27.0-33.0); Mean Corpuscular Volume 85.5 fL (80.0-98.0); Mean Platelet Volume 10.3 fL (9.4-12.3); Monocytes Absolute Auto 0.5 X10*3/uL (0.1-1.2); Monocytes Percent Auto 8.8 % (2-11); Neutrophils Absolute Auto 2.7 x10*3/uL (2.0-8.3); Neutrophils Percent Auto 51.9 % (45-73); Platelet Count 315 X10*3/uL (160-400); Red Blood Count 5.11 X10*6/uL (4.20-5.50); Red Cell Distribution Width 12.8 % (11.0-16.0); White Blood Count 5.2 X10*3/uL (4.8-10.8)
[2023-06-23 11:35] LABS: Alanine Aminotransferase 11 U/L (0-31); Albumin Level 4.3 g/dL (3.5-5.0); Alkaline Phosphatase 84 U/L (39-117); Anion Gap 12 (12-20); Aspartate Amino Transferase 17 U/L (5-31); Bilirubin Total 0.6 mg/dL (0.0-1.0); Blood Urea Nitrogen 16 mg/dL (9-16); Calcium 9.6 mg/dL (8.4-10.2); Carbon Dioxide 27 mmol/L (22-29); Chloride 106 mmol/L (96-108); Cholesterol 231 mg/dL (<200); Estimated Glomerular Filt Rate > 60; Glucose Fasting 81 mg/dL (60-99); HDL Cholesterol 86 mg/dL (>40); LDL Cholesterol Calculated 137 mg/dL (<100); Potassium 4.3 mmol/L (3.3-5.1); Sodium 141 mmol/L (135-145); Total Protein 6.9 g/dL (6.5-8.0); Triglycerides 40 mg/dL (<150)
[2023-06-23 11:58] LABS: Thyroid Stimulating Hormone 0.28 uIU/mL (0.32-4.0); Vitamin D 25-OH Total 55.4 ng/mL (>30)
== END 2023-06-23 08:41 | disposition home or self-care (01) ==
LOC: HO.HMGCLDS 08:40
PROVIDERS: PCP Internal Medicine; Visit Provider Internal Medicine
DX: Z00.01 Encounter for general adult medical examination with abnormal findings (principal); E55.9 Vitamin D deficiency, unspecified; D12.6 Benign neoplasm of colon, unspecified; E89.0 Postprocedural hypothyroidism; Z78.0 Asymptomatic menopausal state
CPT/HCPCS: 36415; 80053; 80061; 82306; 84443; 85025

== ENCOUNTER 2023-07-27 07:49 | Outpatient (REF) | payer BC, MEDICAID, SELFPAY ==
--- NOTE | ~2023-07-27 | MM_ITS ---
EXAMINATION: MM SCREENING DIGITAL BREAST TOMOSYNTHESIS, BILATERAL CLINICAL INFORMATION: Screening. Asymptomatic. COMPARISON: Mammography: 01/16/2021, and outside mammography 03/18/2017, 09/04/2014, and 09/01/2014 ([facility] [place] TECHNIQUE: Digital breast tomosynthesis is performed in both the craniocaudal and mediolateral oblique views along with computer-aided detection (CAD). Synthesized 2D images are generated from the tomosynthesis. FINDINGS: There are scattered areas of fibroglandular density (ACR BI-RADS breast composition Category b). There are no suspicious masses, suspicious grouped calcifications, or areas of architectural distortion in either breast. The parenchymal pattern is stable from prior exams. No skin or axillary abnormality. MM/MM tomosynthesis screening BI IMPRESSION: No mammographic evidence of malignancy. ASSESSMENT: BI-RADS BI-RADS 1 - Negative RECOMMENDATION: Routine annual mammography screening. 1 year F/U This examination should not preclude the clinical evaluation of a suspicious palpable abnormality. This patient's information was entered into a reminder system with a target due date for their next mammogram.
== END 2023-07-27 07:50 | disposition home or self-care (01) ==
LOC: HO.MAMMO 07:49
PROVIDERS: PCP Internal Medicine; Visit Provider Internal Medicine
DX: Z12.31 Encounter for screening mammogram for malignant neoplasm of breast (principal)
CPT/HCPCS: 77063; 77067

== ENCOUNTER → 2023-07-27 08:00 | Outpatient (BNV) | payer BC, MEDICAID, SELFPAY | PROVIDERS: PCP Internal Medicine; Visit Provider Radiology Diagnostic Radiology | DX: Z12.31 Encounter for screening mammogram for malignant neoplasm of breast (principal) | CPT/HCPCS: 77063; 77067 ==

== ENCOUNTER 2023-10-13 11:44 | Outpatient (AMB) | payer BC, SELFPAY ==
[2023-10-13 11:51] VITALS: BP 124/74; PULSE 78; TEMP 36.7; O2SAT 97; BMI 27.3
--- NOTE | 2023-10-13 11:51 | AM.OFFWIN_ITS ---
Intake Vital Signs 3 10/13/23 11:51 Height 5 ft 5 in Weight 164 lb BMI 27.3 BP 124/74 Blood Pressure Location Rt brachial Position Sitting Pulse 78 Pulse Source Pulse Oximeter Temp 98.1 F Temp Source Oral Pulse Oximetry (%) 97 Oxygen Delivery Method Room Air Intake Visit Reasons: EP tick bite RT back calf Intake Note: Pt is here today c/o Rt calf tick bite Patient Tobacco Use Status: Never used Tobacco Allergies No Known Allergies [No Known Allergies*] Allergy (Verified 10/13/23 11:52) HPI EP tick bite RT back calf 2 HPI0 Details Patient is a 58-year-old female comes to the walk-in clinic reporting a tick bite to her right inner calf area. She reports that she walks her dogs frequently, and possibly had the tick imbedded for up to 2 days. She reports that she felt a sharp pain to the area yesterday but it was an 8 hour period before she discovered the tick and removed it. She reports that it was embedded very well as it took some time for it to detach. The area has grown red, warm and swollen around the bite. She does not report fever chills, weakness or dizziness, myalgias or malaise, or other systemic symptoms or associated symptoms. [facility] Medical History Contusion of wrist, right Postoperative hypothyroidism Vitamin D deficiency Postmenopause Multinodular non-toxic goiter Tubular adenoma of colon Surgical History Hx of total thyroidectomy History of strabismus surgery H/O hemorrhoidectomy Hx of colonoscopy Family History Sister Hypothyroidism Sister Hypothyroidism Sister Hypothyroidism Father History of open heart surgery Mental health disorder Mother Colon cancer Hemorrhagic stroke Social History Household Members: Family Housing: House Alcohol intake: never Patient Tobacco Use Status: Never used Tobacco e-Cigarette/Vaping Use: Never Used service: No Current occupational status: employed Gender identity: Female Cognitive needs: No Hearing needs: No Vision needs: No Female Reproductive History Menstrual Age of Menarche: 11 Review of Systems Const All systems reviewed & are unremarkable except as noted in HPI and below Physical Exam Vital Signs: Last Vital Signs Temp 98.1 F 10/13/23 11:51 Pulse 78 10/13/23 11:51 BP 124/74 10/13/23 11:51 Pulse Ox 97 10/13/23 11:51 Oxygen Delivery Method Room Air 10/13/23 11:51 BMI result Body Mass Index 27.3 Extrem Knee images: 2 1. Erythematous, warm and mildly edematous area with a central hyperpigmented bite wound, resembling a tick bite. Assessment & Plan Assessment & Plan (1) Tick bite: Code(s): W57.XXXA - Bitten or stung by nonvenomous insect and other nonvenomous arthropods, initial encounter Qualifiers: Site of tick bite: lower leg Laterality: right Encounter type: initial encounter Qualified Code(s): S80.861A - Insect bite (nonvenomous), right lower leg, initial encounter; W57.XXXA - Bitten or stung by nonvenomous insect and other nonvenomous arthropods, initial encounter Plan: Patient with tick bite with surrounding edema erythema and warmth, in determined. Of attachment. It is about a 4 cm circular area, with no central clearing indicative of an erythema migrans rash. However due to the cellulitic features, I advised that she start a 2 week course of doxycycline to cover possible Lyme transmission, along with the other tick-borne illnesses. She was amenable to this. I wrote her for a 2 week course of doxycycline monohydrate, and advised that she consider probiotics as well to decrease the GI effects. She will monitor symptoms for a few weeks to months, and will follow up if she develops any residual issues. Medications: New 2 doxycycline monohydrate 100 mg PO BID 14 days 28 caps 0RF Coding Level of Care Code Est Pt Level 4 (22771) Diagnoses Tick bite of right lower leg, initial encounter S80.861A; W57.XXXA Site of tick bite: lower leg Laterality: right Encounter type: initial encounter
== END 2023-10-13 12:32 | disposition home or self-care (01) ==
PROVIDERS: PCP Internal Medicine; Visit Provider Physician Assistant Medical
DX: S80.861A Insect bite (nonvenomous), right lower leg, initial encounter (principal); W57.XXXA Bitten or stung by nonvenomous insect and other nonvenomous arthropods, initial encounter
CPT/HCPCS: 99214

== ENCOUNTER 2023-10-14 12:42 | Emergency (ER) | payer BC, OTHER, SELFPAY ==
[2023-10-14 12:52] VITALS: BP 153/82; PULSE 97; RESP 16; TEMP 36.8; O2SAT 98; BMI 28.4
--- NOTE | 2023-10-14 12:53 | ED.SKABFB ---
HPI - Skin/Abscess/Foreign Bdy General Chief complaint: Animal Bite Stated complaint: Tick bite Time Seen by Provider: 10/14/23 13:05 Source: patient Mode of arrival: ambulatory Limitations: no limitations History of Present Illness HPI narrative: Patient is a 58-year-old female, Reports that she started Doxycycline 100mg BID yesterday for 14 days, tick bite was discovered 2 days ago, unknown how long it was attached for. at yesterday they marked the margins and she was advised to be re-evaluated if the redness exceeded past this, and she states it was doubled in size. She denies headache, vision changes, neck pain, fatigue, fevers, chills, numbness or tingling of the extremities, weakness. Related Data Home Medications ?Medication ?Instructions ?Recorded ?Confirmed multivitamin 1 tab PO DAILY 10/06/20 06/26/23 Previous Rx's ?Medication ?Instructions ?Recorded levothyroxine 112 mcg tablet 112 mcg PO DAILY #90 tabs 08/26/23 doxycycline monohydrate 100 mg 100 mg PO BID 14 days #28 caps 10/13/23 capsule Allergies Allergy/AdvReac Type Severity Reaction Status Date / Time No Known Allergies Allergy Verified 10/14/23 12:53 [No Known Allergies*] Review of Systems Review of Systems: Yes all other systems are reviewed and are negative PMFSH Past Medical History Attestation statement: The following information was validated with the patient. Source: old records reviewed Medical History Contusion of wrist, right Postoperative hypothyroidism Vitamin D deficiency Postmenopause Multinodular non-toxic goiter Tubular adenoma of colon Surgical History Hx of total thyroidectomy History of strabismus surgery H/O hemorrhoidectomy Hx of colonoscopy Family History Family History Sister Hypothyroidism Sister Hypothyroidism Sister Hypothyroidism Father History of open heart surgery Mental health disorder Mother Colon cancer Hemorrhagic stroke Social History Social History Household Members: Family Housing: House Alcohol intake: never Patient Tobacco Use Status: Never used Tobacco e-Cigarette/Vaping Use: Never Used service: No Current occupational status: employed Gender identity: Female Cognitive needs: No Hearing needs: No Vision needs: No Physical Exam Vital Signs: Vital Signs: Last Vital Signs Temp 98.3 F 10/14/23 12:52 Pulse 97 10/14/23 12:52 Resp 16 10/14/23 12:52 BP 153/82 H 10/14/23 12:52 Pulse Ox 98 10/14/23 12:52 O2 Del Method Room Air 10/14/23 12:52 BMI result Body Mass Index 28.4 Appearance: Alert.?Oriented to person, place and time. No acute distress.?Normal affect. Eyes: Pupils equal, round and reactive to light.? ENT: Pharynx normal.?? Neck: Normal inspection.? Neck supple.?? CVS: Heart sounds normal. Normal heart rate and rhythm.? Pulses normal.?? Respiratory: No respiratory distress.? Lung sounds clear to auscultation bilaterally?? Abdomen: Soft and non-tender. Normoactive bowel sounds. Skin: Skin warm and dry.? Normal skin color.? Right posterior calf with 7 cm annular erythematous patch with central scabbed lesion, no central clearing at this time Extremities: No lower extremity edema.? No calf ttp? Neuro: Moves all extremities spontaneously. Sensation intact bilaterally. CN II-XII intact. No focal neuro deficits. Ambulates with normal steady gait. Medical Decision Making Medical Decision Making MDM Narrative: Patient is a 50-year-old female who presents emergency department for re-evaluation of rash after recent tick bite as per HPI. Overall she appears well, nontoxic, afebrile. At this time she is without evidence of early disseminated disease. We discussed progression of the rash that can be expected and potential central clearing/targets/bull's eye type appearance. Advised to continue taking doxycycline as prescribed. Discussed additional conservative treatment that may help to alleviate symptoms. All questions were answered. Advised outpatient follow-up with her primary care provider. Stable for discharge Differential Diagnosis Differential Diagnoses: The differential diagnosis associated with the presentation includes (See narrative above) Independent Historian Clinical information obtained from an independent historian. History obtained from or confirmed by: Friend (Present who confirms history) Prescription Management I considered prescription management with: Pain Medication (Acetaminophen/ibuprofen) and Antibiotic (Continue taking doxycycline as prescribed) Discharge Plan Discharge Clinical Impression: Tick bite of calf Patient Disposition: Home, Self-Care Instructions: Tick Bite (ED) Additional Instructions: Continue taking doxycycline as prescribed. Rash typically expand slowly over the course days, you may begin to notice a central clearing. If you develop trouble walking or moving her legs, fevers, chills, weakness, neck stiffness, joint pain, confusion you should seek re-evaluation. You may apply ice to the area for 15-20 minutes to help decrease the swelling and pain. Prescriptions: No Action levothyroxine 112 mcg tablet 112 mcg PO DAILY Qty: 90 1RF multivitamin Tablet 1 tab PO DAILY doxycycline monohydrate 100 mg capsule 100 mg PO BID 14 Days Qty: 28 0RF Referrals: Mag Rhodes MD [Primary Care Provider] - Print Language: Gibralt[place]
[2023-10-14 13:37] VITALS: BP 148/87; PULSE 94; RESP 18; TEMP 36.4; O2SAT 95
== END 2023-10-14 13:38 | disposition home or self-care (01) ==
PROVIDERS: Emergency Provider Student in an Organized Health Care Education/Training Program; PCP Internal Medicine
DX: S80.869A Insect bite (nonvenomous), unspecified lower leg, initial encounter (principal); W57.XXXA Bitten or stung by nonvenomous insect and other nonvenomous arthropods, initial encounter; Y93.9 Activity, unspecified; Y92.9 Unspecified place or not applicable; Y99.9 Unspecified external cause status
CPT/HCPCS: 99282

== ENCOUNTER 2023-10-25 09:18 | Outpatient (AMB) | payer BC, SELFPAY ==
[2023-10-25 10:05] VITALS: BP 126/80; PULSE 83; TEMP 36.3; O2SAT 96; BMI 28.6
--- NOTE | 2023-10-25 10:05 | MHC.OFFWIV ---
Intake Vital Signs 10/25/23 10:05 Height 5 ft 5 in Weight 172 lb BMI 28.6 BP 126/80 Blood Pressure Location Lt brachial Position Sitting Pulse 83 Pulse Source Pulse Oximeter Temp 97.3 F Temp Source Temporal Artery Scan Pulse Oximetry (%) 96 Oxygen Delivery Method Room Air Intake Visit Reasons: EP tick bite f/u [place] 10/13/23 Intake Note: pt is here today for tick bit f/u Patient Tobacco Use Status: Never used Tobacco Allergies No Known Allergies [No Known Allergies*] Allergy (Verified 10/25/23 10:10) Do you need a note to return to daycare/school/sports/work: No HPI HPI Comments History of Present Illness Details 58 y/o female patient who presents to walk in clinic with c/o Tick bite. Pt was seen and treated at , was given Doxy for 14 days. Pt feels better now, but wanted to be re-evaluated. [facility] Medical History Contusion of wrist, right Postoperative hypothyroidism Vitamin D deficiency Postmenopause Multinodular non-toxic goiter Tubular adenoma of colon Surgical History Hx of total thyroidectomy History of strabismus surgery H/O hemorrhoidectomy Hx of colonoscopy Family History Sister Hypothyroidism Sister Hypothyroidism Sister Hypothyroidism Father History of open heart surgery Mental health disorder Mother Colon cancer Hemorrhagic stroke Social History Household Members: Family Housing: House Alcohol intake: never Patient Tobacco Use Status: Never used Tobacco e-Cigarette/Vaping Use: Never Used service: No Current occupational status: employed Gender identity: Female Cognitive needs: No Hearing needs: No Vision needs: No Female Reproductive History Menstrual Age of Menarche: 11 Review of Systems Const All systems reviewed & are unremarkable except as noted in HPI and below Physical Exam Vital Signs: Last Vital Signs Temp 97.3 F 10/25/23 10:05 Pulse 83 10/25/23 10:05 BP 126/80 10/25/23 10:05 Pulse Ox 96 10/25/23 10:05 Oxygen Delivery Method Room Air 10/25/23 10:05 BMI result Body Mass Index 28.6 Const General: comfortable and no acute distress Orientation/consciousness: patient oriented x3 Skin Other: Right posterior calf with 2 cm annular erythematous patch with central scabbed lesion, not spreading. General skin exam: dry skin Neuro General: patient oriented x3 Assessment & Plan Assessment & Plan (1) Tick bite: Code(s): W57.XXXA - Bitten or stung by nonvenomous insect and other nonvenomous arthropods, initial encounter Qualifiers: Encounter type: subsequent encounter Site of tick bite: lower leg Laterality: right Qualified Code(s): S80.861D - Insect bite (nonvenomous), right lower leg, subsequent encounter; W57.XXXD - Bitten or stung by nonvenomous insect and other nonvenomous arthropods, subsequent encounter Plan: - Continue on Doxy as directed - Area is healing well, no Signs of infection at this time. Coding Level of Care Code Est Pt Level 3 (42995) Diagnoses Tick bite of right lower leg, subsequent encounter S80.861D; W57.XXXD Encounter type: subsequent encounter Site of tick bite: lower leg Laterality: right Time Spent (min) 15
== END 2023-10-25 11:23 | disposition home or self-care (01) ==
PROVIDERS: PCP Internal Medicine; Visit Provider Nurse Practitioner Family
DX: S80.861D Insect bite (nonvenomous), right lower leg, subsequent encounter (principal); W57.XXXD Bitten or stung by nonvenomous insect and other nonvenomous arthropods, subsequent encounter
CPT/HCPCS: 99213

== ENCOUNTER 2023-10-30 10:29 | Outpatient (AMB) | payer BC, SELFPAY ==
[2023-10-30 11:28] VITALS: BP 130/85; PULSE 93; O2SAT 98; BMI 28.1
--- NOTE | 2023-10-30 11:28 | A.OFFPC_ITS ---
Vital Signs 10/30/23 11:28 Height 5 ft 5 in Weight 169 lb BMI 28.1 BP 130/85 Blood Pressure Location Rt brachial Position Sitting Pulse 93 Pulse Source Pulse Oximeter Pulse Oximetry (%) 98 Oxygen Delivery Method Room Air Intake Visit Reasons: Swelling cafs Intake Note: Pt is here today c/o bilateral calf swolleness Allergies No Known Allergies [No Known Allergies*] Allergy (Verified 10/30/23 13:37) Medication List - Last Reconciled 10/30/23 by Mag Rhodes MD cholecalciferol (vitamin D3) 125 mcg PO DAILY levothyroxine 112 mcg PO DAILY multivitamin 1 tab PO DAILY Tobacco use date assessed: 10/30/23 Dental Screening Dental Screen Date: 10/30/23 Did you have a dental visit in the last 12 months?: Yes Did you have a dental problem in the last 6 months where you did not have access to dental care?: No Was dental information given to patient?: Patient has dentist HPI Swelling cafs HPI Details 58-year-old lady here today to have her legs checked. Patient states that she got bit by a tick on her left lower leg October 11, was treated with 10 day course of doxycycline. She however states that she has been noticing melanie t her left lower leg is slightly bigger than her right. Does not have any pain, numbness or tingling over affected area. Area of tick bite is already dry and crusted over. She is also here for follow-up on her hypothyroidism and hyperlipidemia, compliant with taking her medications, and has been staying active, walks her dog daily and tries to eat healthy diet. [facility] Medical History (Updated 10/30/23 @ 13:53 by Mag Rhodes MD) Hyperlipidemia Postoperative hypothyroidism Postmenopause Multinodular non-toxic goiter Tubular adenoma of colon Surgical History Hx of total thyroidectomy History of strabismus surgery H/O hemorrhoidectomy Hx of colonoscopy Family History Sister Hypothyroidism Sister Hypothyroidism Sister Hypothyroidism Father History of open heart surgery Mental health disorder Mother Colon cancer Hemorrhagic stroke Social History Household Members: Family Housing: House Alcohol intake: never Patient Tobacco Use Status: Never used Tobacco e-Cigarette/Vaping Use: Never Used service: No Current occupational status: employed Gender identity: Female Cognitive needs: No Hearing needs: No Vision needs: No Female Reproductive History Menstrual Age of Menarche: 11 Questionnaire PHQ-9 Over the last 2 weeks, how often have you been bothered by any of the following problems? 1. Little interest or pleasure in doing things: not at all 2. Feeling down, depressed, or hopeless: not at all 3. Trouble falling or staying asleep, or sleeping too much: not at all 4. Feeling tired or having little energy: not at all 5. Poor appetite or overeating: not at all 6. Feeling bad about yourself - or that you are a failure or have let yourself or your family down: not at all 7. Trouble concentrating on things, such as reading the newspaper or watching television: not at all 8. Moving or speaking so slowly that other people could have noticed. Or the opposite - being so fidgety or restless that you have been moving around a lot more than usual: not at all 9. Thoughts that you would be better off or of hurting yourself in some way: not at all Total score: 0 Depression Screening Interpretation: Negative Depression Screening Done: Yes 51898 - PHQ-9 Billing: Yes Source: Developed by Drs. Carl Yañez, Nae Vaz, Oliver Obrien and colleagues, with an educational john from [email or web address] ([employer]). Thrive Questionnaire Date Thrive assessed: 10/30/23 I am a: Patient What is your living situation today?: I have a steady place to live Within the past 12 months, did the food you bought not last and you didn't have the money to get more?: Never true Within the past 12 months, did you worry whether your food would run out before you got money to buy more?: Never true Do you have trouble paying for medicines?: No Do you have trouble getting transportation to medical appointments?: No Do you have trouble paying your heating and electricity bill?: No Do you have trouble taking care of your child, family member or friend?: No Do you have trouble with day-to-day activities such as bathing, preparing meals, shopping, managing finances, etc.?: No Are you currently unemployed and looking for a job?: No Are you interested in more education?: No THRIVE Score: 0 AUDIT C Alcohol Use Questionnaire (AUDIT-C) 1. How often do you have a drink containing alcohol?: Never Total Score: 0 SURENDRA-7 AMB Questionnaire SURENDRA-7 Date SURENDRA - 7 assessed: 10/30/23 Feeling nervous, anxious, or on edge: 0 = Not at all Not being able to stop or control worryin = Not at all Worrying too much about different things: 0 = Not at all Trouble relaxin = Not at all Being so restless that it is hard to sit still: 0 = Not at all Becoming easily annoyed or irritable: 0 = Not at all Feeling afraid as if something awful might happen: 0 = Not at all Total SURENDRA-7 score (0-4 normal; 5-9 mild; 10-14 moderate; 15-21 severe): 0 Source: Developed by Drs. Carl Yañez, Nae Vaz, Oliver Obrien and colleagues, with an educational john from [email or web address] ([employer]). SURENDRA-7 Assessment Billing SURENDRA-7 Assessment Tool: SURENDRA-7 Assessment 77355 Review of Systems Const Denies body aches, Denies fatigue, Denies fever(s), Denies headache(s), Denies malaise and Denies weakness Eyes Details: Goes to [facility], wears driving and reading glasses Reports blurry vision and Denies diplopia ENT Denies headache(s) Card Denies chest pain, Denies irregular heart rhythm and Denies dyspnea Resp Denies cough and Denies dyspnea GI Denies abdominal pain, Denies change in bowel habits and Denies nausea Reports no additional complaints Musc Denies myalgias, Denies muscle cramps, Denies numbness and Denies tingling Skin/Breast Reports as per HPI Neuro Denies headache(s), Denies numbness, Denies tingling and Denies weakness Psych Reports no additional complaints Endo Denies cold intolerance, Denies fatigue and Denies heat intolerance Physical exam (Primary Care) Vital Signs: Last Vital Signs Pulse 93 10/30/23 11:28 BP 140/88 H 10/30/23 11:28 Pulse Ox 98 10/30/23 11:28 Oxygen Delivery Method Room Air 10/30/23 11:28 BMI result Body Mass Index 28.1 Tobacco/Smoking Status: Tobacco use Status Tobacco use date assessed 10/30/23 10/30/23 11:33 Patient Tobacco Use Status Never used Tobacco 10/30/23 11:33 e-Cigarette/Vaping Use Never Used 10/30/23 11:33 PHQ-9: PHQ-9 Score PHQ-9: Total score 0 10/30/23 13:36 Depression Screening Interpretation: Negative Thrive Assessment: Date of Thrive Assessment Date Thrive assessed 10/30/23 10/30/23 11:37 Const General: no acute distress and alert Orientation/consciousness: patient oriented x3 HENMT Head: Yes normocephalic Ears: external ears normal General nose exam: Normal external nose present Face and sinus: Yes face symmetric Mouth: Normal oral and palatal mucosa present and moist mucous membranes Eyes General: appearance normal, both eyes and all related structures Neck Neck: Yes full ROM, Yes no lymphadenopathy and Yes supple Resp Effort & Inspection: normal respiratory effort and able to speak in complete sentences Auscultation: clear to auscultation bilaterally Cardio Rate: regular rate Rhythm: regular rhythm Heart sounds: S1 normal heart sound present and S2 normal heart sound present Peripheral pulses: popliteal pulses present, posterior tibial pulses present and dorsalis pedis present GI Palpation (GI): Soft to palpation, nontender, no guarding and no masses Auscultation: normal bowel sounds Skin Other: Dry crusted lesion on back of right lower leg Neuro General: patient oriented x3, gait normal, moves all extremities, Normal light touch and pain sensation, no focal motor deficits and CN's II-XI intact bilaterally Cognition (Neuro): normal cognition Gait exam (Neuro): Normal gait present Motor exam (neuro): 5/5 motor strength present throughout Extrem General: Yes normal to inspection, Yes full ROM, Yes no joint enlargement, Yes no clubbing, cyanosis or edema, Yes no pedal edema, Yes no calf tenderness and Yes normal gait Assessment and Plan Assessment & Plan (1) Postoperative hypothyroidism: Code(s): E89.0 - Postprocedural hypothyroidism Plan: Currently on levothyroxine 112 mcg taken once a day. Will check TSH and free T4 (2) Hyperlipidemia: Code(s): E78.5 - Hyperlipidemia, unspecified Qualifiers: Hyperlipidemia type: moderate mixed hyperlipidemia not requiring statin therapy Qualified Code(s): E78.2 - Mixed hyperlipidemia Plan: Reinforced importance of following a low-cholesterol diet getting regular exercise, will repeat another fasting lipid panel (3) Tick bite of right lower leg: Code(s): S80.861A - Insect bite (nonvenomous), right lower leg, initial encounter; W57.XXXA - Bitten or stung by nonvenomous insect and other nonvenomous arthropods, initial encounter Qualifiers: Encounter type: sequela Qualified Code(s): S80.861S - Insect bite (nonvenomous), right lower leg, sequela; W57.XXXS - Bitten or stung by nonvenomous insect and other nonvenomous arthropods, sequela Plan: Completed already a course of doxycycline, patient currently asymptomatic, with no swelling in lower extremities noted. Will repeat another Lyme titer Orders: Orders Lyme IgG/IgM w/reflex to WB Today E78.5 - Hyperlipidemia, unspecified, E89.0 - Postprocedural hypothyroidism, S80.861A - Insect bite (nonvenomous), right lower leg, initial encounter, W57.XXXA - Bitten or stung by nonvenomous insect and other nonvenomous arthropods, initial encounter Free T4 (Free Thyroxine) Today E78.5 - Hyperlipidemia, unspecified, E89.0 - Postprocedural hypothyroidism, S80.861A - Insect bite (nonvenomous), right lower leg, initial encounter, W57.XXXA - Bitten or stung by nonvenomous insect and other nonvenomous arthropods, initial encounter Thyroid Stimulating Hormone Today E78.5 - Hyperlipidemia, unspecified, E89.0 - Postprocedural hypothyroidism, S80.861A - Insect bite (nonvenomous), right lower leg, initial encounter, W57.XXXA - Bitten or stung by nonvenomous insect and other nonvenomous arthropods, initial encounter Lipid Panel Today E78.5 - Hyperlipidemia, unspecified, E89.0 - Postprocedural hypothyroidism, S80.861A - Insect bite (nonvenomous), right lower leg, initial encounter, W57.XXXA - Bitten or stung by nonvenomous insect and other nonvenomous arthropods, initial encounter Coding Level of Care Code Est Pt Level 4 (81113) Diagnoses Postoperative hypothyroidism E89.0 Moderate mixed hyperlipidemia not requiring statin therapy E78.2 Hyperlipidemia type: moderate mixed hyperlipidemia not requiring statin therapy Tick bite of right lower leg, sequela S80.861S; W57.XXXS Encounter type: sequela Additional Codes SURENDRA-7 Assessment Billing - SURENDRA-7 Assessment Tool: SURENDRA-7 Assessment 13571 ([id number])
== END 2023-10-30 12:19 | disposition home or self-care (01) ==
PROVIDERS: PCP Internal Medicine; Visit Provider Internal Medicine
DX: E89.0 Postprocedural hypothyroidism (principal); E78.2 Mixed hyperlipidemia; S80.861S Insect bite (nonvenomous), right lower leg, sequela; W57.XXXS Bitten or stung by nonvenomous insect and other nonvenomous arthropods, sequela
CPT/HCPCS: 99214

== ENCOUNTER 2023-11-01 07:28 | Outpatient (REF) | payer BC, OTHER, SELFPAY ==
[2023-11-01 11:33] LABS: Cholesterol 216 mg/dL (<200); Free T4 (Free Thyroxine) 1.32 ng/dL (0.71-1.85); HDL Cholesterol 76 mg/dL (>40); LDL Cholesterol Calculated 130 mg/dL (<100); Thyroid Stimulating Hormone 0.13 uIU/mL (0.32-4.0); Triglycerides 52 mg/dL (<150)
[2023-11-02 18:29] LABS: Lyme Abs Screen <0.90 index
== END 2023-11-01 07:29 | disposition home or self-care (01) ==
LOC: HO.HMGCLDS 07:28
PROVIDERS: PCP Internal Medicine; Visit Provider Internal Medicine
DX: E89.0 Postprocedural hypothyroidism (principal); E78.5 Hyperlipidemia, unspecified; S80.861A Insect bite (nonvenomous), right lower leg, initial encounter; W57.XXXA Bitten or stung by nonvenomous insect and other nonvenomous arthropods, initial encounter; Y93.9 Activity, unspecified; Y92.9 Unspecified place or not applicable; Y99.9 Unspecified external cause status
CPT/HCPCS: 36415; 80061; 84439; 84443; 86617; 86618

== ENCOUNTER 2024-07-24 10:16 | Outpatient (REF) | payer BC, OTHER, SELFPAY ==
[2024-07-24 13:50] LABS: Hematocrit 44.9 % (37.0-47.0); Hemoglobin 14.6 g/dl (12.0-16.0)
[2024-07-24 14:21] LABS: Alanine Aminotransferase 13 U/L (0-31); Anion Gap 10 (12-20); Aspartate Amino Transferase 23 U/L (5-31); Blood Urea Nitrogen 9 mg/dL (9-16); Calcium 9.8 mg/dL (8.4-10.2); Carbon Dioxide 26 mmol/L (22-29); Chloride 110 mmol/L (96-108); Cholesterol 224 mg/dL (<200); Estimated Glomerular Filt Rate > 60; Glucose Fasting 86 mg/dL (60-99); HDL Cholesterol 80 mg/dL (>40); LDL Cholesterol Calculated 133 mg/dL (<100); Sodium 141 mmol/L (135-145); Triglycerides 58 mg/dL (<150)
[2024-07-24 14:22] LABS: Free T4 (Free Thyroxine) 1.41 ng/dL (0.71-1.85); Vitamin D 25-OH Total 36.2 ng/mL (>30)
[2024-07-25 09:48] LABS: Thyroid Peroxidase Antibodies 2 IU/mL (<9)
== END 2024-07-24 10:17 | disposition home or self-care (01) ==
LOC: HO.HMGCLDS 10:16
PROVIDERS: PCP Internal Medicine; Visit Provider Internal Medicine
DX: E78.2 Mixed hyperlipidemia (principal); E89.0 Postprocedural hypothyroidism; Z78.0 Asymptomatic menopausal state; Z13.1 Encounter for screening for diabetes mellitus; D12.6 Benign neoplasm of colon, unspecified; Z86.0101 Personal history of adenomatous and serrated colon polyps
CPT/HCPCS: 36415; 80048; 80061; 82306; 84439; 84450; 84460; 85014; 85018; 86376

== ENCOUNTER 2024-08-13 11:23 | Outpatient (AMB) | payer BC, SELFPAY ==
[2024-08-13 11:54] VITALS: BP 130/80; PULSE 90; RESP 15; TEMP 36.8; O2SAT 99; BMI 29.1
--- NOTE | 2024-08-13 11:54 | MHC.PC.OV ---
Vital Signs 08/13/24 11:54 Height 5 ft 5 in Weight 175 lb BMI 29.1 BP 130/80 Blood Pressure Location Rt brachial Position Sitting Respiration 15 Pulse 90 Pulse Source Pulse Oximeter Temp 98.2 F Temp Source Oral Pulse Oximetry (%) 99 Oxygen Delivery Method Room Air Intake Visit Reasons: Follow-up ER Intake Note: Pt is here today to f/u ER for inflamed lymph nodes Allergies No Known Allergies [No Known Allergies*] Allergy (Verified 08/13/24 12:28) Medication List - Last Reconciled 08/13/24 by Mag Rhodes MD cholecalciferol (vitamin D3) 125 mcg PO DAILY levothyroxine 112 mcg PO DAILY multivitamin 1 tab PO DAILY Tobacco use date assessed: 08/13/24 Dental Screening Dental Screen Date: 08/13/24 Did you have a dental visit in the last 12 months?: Yes Did you have a dental problem in the last 6 months where you did not have access to dental care?: No Was dental information given to patient?: Patient has dentist HPI HPI Comments History of Present Illness Details 59 year old lady here for a follow up after a recent ER visit where she was evaluated for abdominal/back pain was mainly in anterior abdomen , accompaned by bloating and belching. No diarrhea or constipation, no prior abdominal surgery. CT abdomen /pelvis showed nonspecific fat stranding /fluid with mildly enlarged retroperitoneal lymph nodes which may be reactive , pancreas appears normal , no discrete mass orhematoma . CBC, lipase, CMP , UQ done showed unremarkable results . She took ibuprofen at that time no improvement of symptoms noted. Her CBC, urinalysis, lipase, liver function test electrolytes and renal function all came back within normal limits. Patient was discharged with no definite diagnosis. At present patient states that she has been feeling well, with no recurrence of abdominal pain or bloating noted PFSH Medical History Hyperlipidemia Postoperative hypothyroidism Postmenopause Multinodular non-toxic goiter Tubular adenoma of colon Surgical History Hx of total thyroidectomy History of strabismus surgery H/O hemorrhoidectomy Hx of colonoscopy Family History Sister Hypothyroidism Sister Hypothyroidism Sister Hypothyroidism Father History of open heart surgery Mental health disorder Mother Colon cancer Hemorrhagic stroke Social History Household Members: Family Housing: House Alcohol intake: never Patient Tobacco Use Status: Never used Tobacco e-Cigarette/Vaping Use: Never Used service: No Current occupational status: employed Gender identity: Female Cognitive needs: No Hearing needs: No Vision needs: No Female Reproductive History Menstrual Age of Menarche: 11 Questionnaire PHQ-9 Over the last 2 weeks, how often have you been bothered by any of the following problems? Depression Screening Interpretation: Negative Depression Screening Done: Yes Source: Developed by Drs. Carl Yañez, Nae Vaz, Oliver Obrien and colleagues, with an educational john from [employer]. Thrive Questionnaire Date Thrive assessed: 07/28/24 I am a: Patient What is your living situation today?: I have a steady place to live Within the past 12 months, did the food you bought not last and you didn't have the money to get more?: Never true Within the past 12 months, did you worry whether your food would run out before you got money to buy more?: Never true Do you have trouble paying for medicines?: No Do you have trouble getting transportation to medical appointments?: No Do you have trouble paying your heating and electricity bill?: No Do you have trouble taking care of your child, family member or friend?: No Do you have trouble with day-to-day activities such as bathing, preparing meals, shopping, managing finances, etc.?: No Are you currently unemployed and looking for a job?: No Are you interested in more education?: No Please select the resources that you would like help with: None THRIVE Score: 0 SURENDRA-7 AMB Questionnaire SURENDRA-7 Date SURENDRA - 7 assessed: 10/30/23 Source: Developed by Drs. Carl Yañez, Oliver Apodaca and colleagues, with an educational john from [employer]. Review of Systems Const Denies body aches, Denies fever(s), Denies malaise and Denies weakness ENT Reports no additional complaints Card Denies chest pain, Denies irregular heart rhythm and Denies dyspnea Resp Denies cough and Denies dyspnea GI Denies abdominal pain, Denies change in bowel habits and Denies nausea Reports no additional complaints Musc Denies myalgias, Denies muscle cramps, Denies numbness and Denies tingling Neuro Denies numbness, Denies tingling and Denies weakness Psych Reports no additional complaints Endo Reports no additional complaints Physical exam (Primary Care) Vital Signs: Last Vital Signs Temp 98.2 F 08/13/24 11:54 Pulse 90 08/13/24 11:54 Resp 15 08/13/24 11:54 BP 130/80 08/13/24 11:54 Pulse Ox 99 08/13/24 11:54 Oxygen Delivery Method Room Air 08/13/24 11:54 BMI result Body Mass Index 29.1 Tobacco/Smoking Status: Tobacco use Status Tobacco use date assessed 08/13/24 08/13/24 11:57 Patient Tobacco Use Status Never used Tobacco 08/13/24 11:57 e-Cigarette/Vaping Use Never Used 08/13/24 11:57 Depression Screening Interpretation: Negative Thrive Assessment: Date of Thrive Assessment Date Thrive assessed 07/28/24 08/13/24 11:57 Const General: no acute distress and alert Orientation/consciousness: patient oriented x3 HENMT Mouth: Normal oral and palatal mucosa present and moist mucous membranes Eyes General: appearance normal, both eyes and all related structures Neck Neck: Yes full ROM, Yes no lymphadenopathy and Yes supple Resp Effort & Inspection: normal respiratory effort and able to speak in complete sentences Auscultation: clear to auscultation bilaterally Cardio Rate: regular rate Rhythm: regular rhythm Heart sounds: S1 normal heart sound present and S2 normal heart sound present GI Palpation (GI): Soft to palpation, nontender, no guarding and no masses Auscultation: normal bowel sounds Neuro General: patient oriented x3, gait normal, moves all extremities, Normal light touch and pain sensation, no focal motor deficits and CN's II-XI intact bilaterally Cognition (Neuro): normal cognition Gait exam (Neuro): Normal gait present Motor exam (neuro): 5/5 motor strength present throughout Extrem General: Yes normal to inspection, Yes full ROM, Yes no joint enlargement, Yes no clubbing, cyanosis or edema, Yes no pedal edema, Yes no calf tenderness and Yes normal gait Coding Level of Care Code Est Pt Level 3 (83834) Diagnoses Hx of abdominal pain Z87.898 Assessment & Plan Assessment & Plan (1) Hx of abdominal pain: Code(s): Z87.898 - Personal history of other specified conditions Category: Medical Plan: Nonspecific abdominal pain with imaging studies and labs all coming back within normal limits. Patient at present is feeling well, with no recurrence of abdominal pain, likely due to gas return to clinic if symptoms recurs.
== END 2024-08-13 12:49 | disposition home or self-care (01) ==
PROVIDERS: PCP Internal Medicine; Visit Provider Internal Medicine
DX: Z87.898 Personal history of other specified conditions (principal)

== ENCOUNTER 2024-08-20 12:50 | Outpatient (AMB) | payer BC, SELFPAY ==
[2024-08-20 12:57] VITALS: BP 120/84; PULSE 98; RESP 15; TEMP 36.5; O2SAT 98; BMI 29.5
--- NOTE | 2024-08-20 12:57 | MHC.PC.OV ---
Vital Signs 08/20/24 12:57 Height 5 ft 5 in Weight 177 lb BMI 29.5 BP 120/84 Blood Pressure Location Lt brachial Position Sitting Respiration 15 Pulse 98 Pulse Source Pulse Oximeter Temp 97.7 F Temp Source Oral Pulse Oximetry (%) 98 Oxygen Delivery Method Room Air Intake Visit Reasons: PE shasta. Intake Note: Pt is here today for her PE: last mammogram 07/27/23, papsmear 11/04/20, colonoscopy 01/07/21 Allergies No Known Allergies [No Known Allergies*] Allergy (Verified 08/20/24 13:28) Medication List - Last Reconciled 08/20/24 by Mag Rhodes MD cholecalciferol (vitamin D3) 125 mcg PO DAILY levothyroxine 112 mcg PO DAILY Tobacco use date assessed: 08/20/24 Dental Screening Dental Screen Date: 08/20/24 Did you have a dental visit in the last 12 months?: No Did you have a dental problem in the last 6 months where you did not have access to dental care?: No Was dental information given to patient?: Patient has dentist HPI PE shasta. HPI Details 59-year-old lady with history of multinodular goiter status post total thyroidectomy, currently now on levothyroxine 112 mcg daily, here today for physical exam. She gets yearly mammograms, has an appointment already scheduled for 09/03/2024 at [facility]. Last colonoscopy was done in 2020, due again for recheck in 2025 due to history of tubular adenoma removed on previous colonoscopies. She had her last cervical cancer screening was done in 2020 which came back with benign findings, done at [facility].. She has been feeling well, with no complaints at present time. Up-to-date with all her vaccines [facility] Medical History History of multinodular goiter Hyperlipidemia Postoperative hypothyroidism Postmenopause Tubular adenoma of colon Surgical History Hx of total thyroidectomy History of strabismus surgery H/O hemorrhoidectomy Hx of colonoscopy Family History Sister Hypothyroidism Sister Hypothyroidism Sister Hypothyroidism Father History of open heart surgery Mental health disorder Mother Colon cancer Hemorrhagic stroke Social History Household Members: Family Housing: House Alcohol intake: never Patient Tobacco Use Status: Never used Tobacco e-Cigarette/Vaping Use: Never Used service: No Current occupational status: employed Gender identity: Female Cognitive needs: No Hearing needs: No Vision needs: Yes Female Reproductive History Menstrual Age of Menarche: 11 Questionnaire PHQ-9 Over the last 2 weeks, how often have you been bothered by any of the following problems? 1. Little interest or pleasure in doing things: not at all 2. Feeling down, depressed, or hopeless: not at all 3. Trouble falling or staying asleep, or sleeping too much: not at all 4. Feeling tired or having little energy: not at all 5. Poor appetite or overeating: not at all 6. Feeling bad about yourself - or that you are a failure or have let yourself or your family down: not at all 7. Trouble concentrating on things, such as reading the newspaper or watching television: not at all 8. Moving or speaking so slowly that other people could have noticed. Or the opposite - being so fidgety or restless that you have been moving around a lot more than usual: not at all 9. Thoughts that you would be better off or of hurting yourself in some way: not at all Total score: 0 Depression Screening Interpretation: Negative Depression Screening Done: Yes 13982 - PHQ-9 Billing: Yes Source: Developed by Drs. Carl Yañez, Nae Vaz, Oliver Obrien and colleagues, with an educational john from [employer]. Thrive Questionnaire Date Thrive assessed: 07/28/24 I am a: Patient What is your living situation today?: I have a steady place to live Within the past 12 months, did the food you bought not last and you didn't have the money to get more?: Never true Within the past 12 months, did you worry whether your food would run out before you got money to buy more?: Never true Do you have trouble paying for medicines?: No Do you have trouble getting transportation to medical appointments?: No Do you have trouble paying your heating and electricity bill?: No Do you have trouble taking care of your child, family member or friend?: No Do you have trouble with day-to-day activities such as bathing, preparing meals, shopping, managing finances, etc.?: No Are you currently unemployed and looking for a job?: No Are you interested in more education?: No Please select the resources that you would like help with: None Currently or been in a relationship where the following occur: No concerns reported THRIVE Score: 0 AUDIT C Alcohol Use Questionnaire (AUDIT-C) 1. How often do you have a drink containing alcohol?: Never Total Score: 0 SURENDRA-7 AMB Questionnaire SURENDRA-7 Date SURENDRA - 7 assessed: 08/20/24 Feeling nervous, anxious, or on edge: 0 = Not at all Not being able to stop or control worryin = Not at all Worrying too much about different things: 0 = Not at all Trouble relaxin = Not at all Being so restless that it is hard to sit still: 0 = Not at all Becoming easily annoyed or irritable: 0 = Not at all Feeling afraid as if something awful might happen: 0 = Not at all Total SURENDRA-7 score (0-4 normal; 5-9 mild; 10-14 moderate; 15-21 severe): 0 Source: Developed by Drs. Carl Yañez, Nae Vaz, Oliver Obrien and colleagues, with an educational john from [employer]. SURENDRA-7 Assessment Billing SURENDRA-7 Assessment Tool: SURENDRA-7 Assessment 85033 Review of Systems Const Denies body aches, Denies fever(s), Denies malaise and Denies weakness Eyes Reports no additional complaints ENT Reports no additional complaints Card Denies chest pain, Denies irregular heart rhythm and Denies dyspnea Resp Denies cough and Denies dyspnea GI Denies abdominal pain, Denies change in bowel habits and Denies nausea Reports no additional complaints Musc Denies myalgias, Denies muscle cramps, Denies numbness and Denies tingling Skin/Breast Denies breast skin changes, Denies breast pain, Denies breast mass, Denies changing lesions, Denies dry skin, Denies lesions, Denies nail changes and Denies rash Neuro Denies numbness, Denies tingling and Denies weakness Psych Reports no additional complaints Endo Reports no additional complaints Stanton/Lymph Reports no additional complaints Aller/Immun Reports no additional complaints Physical exam (Primary Care) Vital Signs: Last Vital Signs Temp 97.7 F 08/20/24 12:57 Pulse 98 08/20/24 12:57 Resp 15 08/20/24 12:57 BP 120/84 08/20/24 12:57 Pulse Ox 98 08/20/24 12:57 Oxygen Delivery Method Room Air 08/20/24 12:57 BMI result Body Mass Index 29.5 Tobacco/Smoking Status: Tobacco use Status Tobacco use date assessed 08/20/24 08/20/24 13:03 Patient Tobacco Use Status Never used Tobacco 08/20/24 13:03 e-Cigarette/Vaping Use Never Used 08/20/24 13:03 PHQ-9: PHQ-9 Score PHQ-9: Total score 0 08/20/24 13:57 Depression Screening Interpretation: Negative Thrive Assessment: Date of Thrive Assessment Date Thrive assessed 07/28/24 08/20/24 13:03 Currently or been in a relationship where the following occur: No concerns reported Const General: no acute distress and alert Orientation/consciousness: patient oriented x3 HENMT Mouth: Normal oral and palatal mucosa present and moist mucous membranes Eyes General: appearance normal, both eyes and all related structures Neck Neck: Yes full ROM, Yes no lymphadenopathy and Yes supple Resp Effort & Inspection: normal respiratory effort and able to speak in complete sentences Auscultation: clear to auscultation bilaterally Cardio Rate: regular rate Rhythm: regular rhythm Heart sounds: S1 normal heart sound present and S2 normal heart sound present GI Palpation (GI): Soft to palpation, nontender, no guarding and no masses Auscultation: normal bowel sounds General: Yes no CVA tenderness Back/Spine/Pelvis Back: no CVA tenderness and No back tenderness Skin General skin exam: no rashes or lesions noted Neuro General: patient oriented x3, gait normal, moves all extremities, Normal light touch and pain sensation, no focal motor deficits and CN's II-XI intact bilaterally Cognition (Neuro): normal cognition Gait exam (Neuro): Normal gait present Motor exam (neuro): 5/5 motor strength present throughout Extrem General: Yes normal to inspection, Yes full ROM, Yes no joint enlargement, Yes no clubbing, cyanosis or edema, Yes no pedal edema, Yes no calf tenderness and Yes normal gait Psych Appearance: grossly normal and well kempt Mental Status: mental status grossly normal Results Reviewed Results Reviewed: Laboratory Tests 07/24/24 10:25 Hgb 14.6 Hct 44.9 Name: Crystal Crawford Age/Sex: 59/F : 1965 Unit#: [id number] Attend Dr: Mag Rhodes MD Re07/24/24 Status: DEP [facility]F [facility] Disch: SPEC : [id number] LAWSON: 07/24/24-1025 STATUS: COMP REQ : [id number] RECD: 07/24/24-[address]: Mag Rhodes MD COMP: 07/24/24-1421 ENTERED: 07/24/24-[address]: ORDERED: Met Prof Fast, AST, ALT, Lipid Panel, Vitamin D 25-OH, Free T4 Test Result Flag Reference Sodium 141 135-145 mmol/L Potassium 5.0 3.3-5.1 mmol/L CL 110 H 96-108 mmol/L CO2 26 22-29 mmol/L Gap 10 L 12-20 BUN 9 9-16 mg/dL Creat 0.78 0.5-1.4 mg/dL eGFR > 60 Chronic Kidney Disease: Estimated GFR < 60 mL/min/1.73m2 Severe Kidney Disease: Estimated GFR < 15 mL/min/1.73m2 FBS 86 60-99 mg/dL CA 9.8 8.4-10.2 mg/dL AST (GOT) 23 5-31 U/L ALT (GPT) 13 0-31 U/L Triglyceride 58 <150 mg/dL Desirable Triglyceride: less than 150 mg/dL Borderline High Triglyceride 150-199 mg/dL High Triglyceride: 200-499 mg/dL Very High Triglyceride: greater than or equal to 5OO mg/dL Cholesterol 224 H <200 mg/dL Desirable Cholesterol: less than 200 mg/dL Borderline High Cholesterol: 200-239 mg/dL High Cholesterol: greater than 239 mg/dL LDL Calculated 133 H <100 mg/dL Desirable LDL: less than 100 mg/dL Near Optimal/Above Optimal LDL: 110-129 mg/dL Borderline High LDL: 130-159 mg/dL High LDL: 160-189 mg/dL Very High LDL: greater than or equal to 190 mg/dL HDL 80 >40 mg/dL Desirable HDL: greater than 40 mg/dL Note: This HDL assay may give artificially low results in patients with liver disease. Vit D 25-OH Tot 36.2 >30 ng/mL Health Based Reference Values* < 20 ng/mL Deficient 20-30 ng/mL Insufficient > 30 ng/mL Sufficient *Kelvin GARCIA. N Engl J Med. 2007;357:266-280 Care must be taken in interpreting Vitamin D results from different laboratories and methodologies. Published data demonstrated that results from patients undergoing hemodialysis may show a negative bias when tested with various automated 25-OH vitamin D assays when compared to LC-MS/MS. When testing samples from patients whose predominant form of Vitamin D is Vitamin D2, such as patients receiving Vitamin D2 supplementation, results that are subtherapeutic should be confirmed with another method such as LC-MS/MS. Free T4 1.41 0.71-1.85 ng/dL Coding Level of Care Code Est Pt Prev Care 40-64y(07036) Diagnoses Annual visit for general adult medical examination with abnormal findings Z00.01 Tubular adenoma of colon D12.6 Postoperative hypothyroidism E89.0 Moderate mixed hyperlipidemia not requiring statin therapy E78.2 Hyperlipidemia type: moderate mixed hyperlipidemia not requiring statin therapy Additional Codes PHQ-9 - 89783 - PHQ-9 Billing: Yes ([id number]) SURENDRA-7 Assessment Billing - SURENDRA-7 Assessment Tool: SURENDRA-7 Assessment 99526 ([id number]) Assessment & Plan Assessment & Plan (1) Annual visit for general adult medical examination with abnormal findings: Code(s): Z00.01 - Encounter for general adult medical examination with abnormal findings Plan: Recent fasting lab results reviewed with patient.. Continue ready dental visit every 6 months and regular eye exams, at least every 2 years. Take adequate calcium in diet and vitamin-D 3 at 2000 IU per cap once a day, in addition to weight-bearing exercises to help maintain good muscle tone and weight control. Instructed to do self-breast exam, and continue with yearly mammogram, currently up-to-date. Due for repeat cervical cancer screening and pelvic exam next year, goes to [facility]. Up-to-date with all her vaccines. (2) Tubular adenoma of colon: Comment: 2020-scope repeat 5 years she Code(s): D12.6 - Benign neoplasm of colon, unspecified Category: Medical Plan: Due for repeat colonoscopy next year with Dr. Love (3) Postoperative hypothyroidism: Code(s): E89.0 - Postprocedural hypothyroidism Category: Medical Plan: Thyroid levels are within normal limits. Continued on current dose of levothyroxine 112 mcg taken once a day in a.m. an hour before breakfast. Refill sent (4) Hyperlipidemia: Code(s): E78.5 - Hyperlipidemia, unspecified Category: Medical Qualifiers: Hyperlipidemia type: moderate mixed hyperlipidemia not requiring statin therapy Qualified Code(s): E78.2 - Mixed hyperlipidemia Plan: Reviewed recent fasting lipid profile with patient with mildly elevated LDL cholesterol.. Stressed importance of adherence to low-cholesterol diet and regular exercise, at least 30 minutes 3 to 4 times a week. Advised patient to make healthy food choices, eat more fruits, vegetables, whole grains, wild caught fish and low-fat dairy. Limit amount of meat and fried or fatty food products, as well as processed foods and fast foods. Medications: Refilled levothyroxine 112 mcg PO DAILY 90 tabs 4RF
== END 2024-08-20 13:57 | disposition home or self-care (01) ==
PROVIDERS: PCP Internal Medicine; Visit Provider Internal Medicine
DX: Z00.01 Encounter for general adult medical examination with abnormal findings (principal); D12.6 Benign neoplasm of colon, unspecified; E89.0 Postprocedural hypothyroidism; E78.2 Mixed hyperlipidemia

== ENCOUNTER → 2024-08-20 12:50 | Outpatient (BNVA) | payer BC, OTHER, SELFPAY | PROVIDERS: PCP Internal Medicine; Visit Provider Internal Medicine | DX: Z00.01 Encounter for general adult medical examination with abnormal findings (principal); E89.0 Postprocedural hypothyroidism; E78.2 Mixed hyperlipidemia; Z79.899 Other long term (current) drug therapy; Z86.0101 Personal history of adenomatous and serrated colon polyps | CPT/HCPCS: 96127 ==

== ENCOUNTER 2024-08-28 09:52 | Outpatient (REF) | payer BC, SELFPAY | END 2024-08-28 09:53 | disposition home or self-care (01) | LOC: HO.MAMMO 09:52 | PROVIDERS: PCP Internal Medicine; Visit Provider Internal Medicine | DX: Z12.31 Encounter for screening mammogram for malignant neoplasm of breast (principal) | CPT/HCPCS: 77063; 77067 ==

== ENCOUNTER → 2024-08-28 10:00 | Outpatient (BNV) | payer BC, SELFPAY | PROVIDERS: PCP Internal Medicine; Visit Provider Internal Medicine | DX: Z12.31 Encounter for screening mammogram for malignant neoplasm of breast (principal) | CPT/HCPCS: 77063; 77067 ==